=== PATIENT | male | born 1940 | race Caucasian/White ===

== ENCOUNTER 2016-11-08 08:38 | Inpatient (IN) | payer OTHER ==
[2016-11-08] VITALS (28 sets, daily range): BP systolic 102–159; BP diastolic 60–107; PULSE 50–72; RESP 13–28; Ht 167.6 cm; Wt 75.9 kg
[~2016-11-08] VITALS: Ht 167.6 cm; Wt 75.9 kg
[2016-11-08] MEDS ORDERED: CARV12.579 PO (09:15)
[2016-11-08] MEDS ORDERED: MTF1000T PO (09:15)
[2016-11-08] MEDS ORDERED: NIT4 SL (09:15)
[2016-11-08] MEDS ORDERED: LISI10TA2 PO (09:15)
[2016-11-08] MEDS ORDERED: ZOC20 PO (09:15)
[2016-11-08] MEDS ORDERED: ZOLP3.5T2 SL (09:15)
[2016-11-08] MEDS ORDERED: ONDA4SOL2 IV* (09:15)
[2016-11-08] MEDS ORDERED: NITR12SP3 TL (09:15)
[2016-11-08] MEDS ORDERED: ASPI81TA3 PO (09:15)
[2016-11-08] MEDS ORDERED: ZOLP12.52 PO (09:15)
[2016-11-08] MEDS ORDERED: PANT40TA4 PO (09:15)
[2016-11-08] MEDS ORDERED: METF1000 PO (09:15)
[2016-11-08] MEDS ORDERED: METF-731 PO (09:15)
[2016-11-08] MEDS ORDERED: ONDA2VIA31 IV (09:15)
[2016-11-08] MEDS ORDERED: HEPARIN 1000 UNITS/ML 10 ML INJ ONE (11:23)
[2016-11-08] MEDS ORDERED: FENTAnyl 50 MCG/ML VIAL ONE (11:23)
[2016-11-08] MEDS ORDERED: NITROGLYCERIN (IC) 100 MCG/ML INJ ONE (11:23)
[2016-11-08] MEDS ORDERED: MIDAZOLAM 1 MG/ML 2 ML INJ ONE (11:23)
[2016-11-08] MEDS ORDERED: VERAPAMIL 5 MG INJ ONE (11:23)
[2016-11-08] MEDS ORDERED: LIDOCAINE 1% (MDV) 20 ML INJ ONE (11:23)
--- NOTE | 2016-11-08 12:06 | OPR ---
Date/Time of Note Date/Time of Note DATE: 11/08/16 TIME: 12:04 Operative Report Free Text/Dictation Procedure Date:11/08/16 Procedures Performed: 1)Selective left and right coronary angiography. 2)Left ventricle angiography Pre-operative Diagnosis: Chest pain with positive stress MPI (inferolateral ischemia). Post-operative Diagnosis: 3 vessel CAD Indications:76 yo M with a h/o PCI who presented with chest pain to [facility]. The pt had a stress test which showed inferior scar as well as inferior and inferolateral ischemia for which he was brought to the [facility]. Description of Procedure: After informed consent, the patient was brought to the cardiac catheterization lab. The procedure site was prepped and draped in usual manner. The patient was premedicated with versed 1mg and fentanyl 50 mcg. 2 mL lidocaine was injected into the right wrist. Next using the posterior wall technique, the 6/ 5 liberian sheath was inserted into the right radial artery. Next using the JL3.5 and JR4, selective angiography of the left and right coronary arteries were obtained. The pigtail was then advanced into the ventricle and hemodynamics obtained. Left ventricle angiography was obtained. Next all equipment was removed and hemostasis was achieved by TR band. Findings: Anatomy/Hemodynamics: Left main: luminal irregularities LAD: mid eccentric 70-80% at bifurcation of large diag 1, mid 70-80% long lesion Diagonal: large vessel with prox eccentric 80% Circumflex:mid 100% with left-left epicardial collaterals to the distal Cx and OMs RCA: dominant vessel with prox to mid long stent with up to 70% focal areas of in-stent restenosis, distal stent with 100% ISR and bridging right-right and left-right collaterals to the PDA and PLV PDA:fills via right-right and left-right collaterals LV angiography:~45% with significant inferior wall hypokinesis LV-Ao no pullback gradient LVEDP: 5 mmHg Assessment: Chest pain with 3 vessel CAD by cath. CAD with h/o prior PCI to RCA Plan: -admit to tele -ASA, lipitor, MTP -Dr. Alfred to evsd for CABG SANDHYA SMITH Nov 08, 2016 12:06 Medications used: Versed Fentanyl Equipment used: 6 liberian guide BMW angioplasty wire 2 x 12 balloon drug eluting stent noncompliant balloon Assessment: Plan: SANDHYA SMITH Nov 08, 2016 12:06
[2016-11-08] MEDS ORDERED: SOD CHLORIDE 0.9% 1,000 ML IV SCH (13:13)
[2016-11-08] MEDS ORDERED: GLUCOSE GEL 15 GRAM TUBE BUCCAL PRN (14:00)
[2016-11-08] MEDS ORDERED: DEXTROSE 50% 50 ML SYRINGE IV PRN ×2 (14:00)
[2016-11-08] MEDS ORDERED: NITROGLYCERIN (SL) 0.4 MG TAB SL PRN (14:00)
[2016-11-08] MEDS ORDERED: ONDANSETRON (2 MG/2.5 ML PO SYG) PO PRN (14:00)
[2016-11-08] MEDS ORDERED: GLUCOSE GEL 15 GRAM TUBE PO PRN ×2 (14:00)
[2016-11-08] MEDS ORDERED: GLUCAGON 1 MG INJ IM PRN (14:00)
--- NOTE | 2016-11-08 15:07 | HP ---
DATE OF ADMISSION: 11/08/2016 CHIEF COMPLAINT: Chest pain, positive stress test. HISTORY OF PRESENT ILLNESS: This is a 76-year-old male with a past medical history of hype rtension, history of diabetes, history of asthma, dyslipidemia, history of coronary artery disease w ith balloon angioplasty in the past, who presented to an outside hospital with chest pain. The merna ent was admitted to an outside hospital on November 04 with symptoms of substernal chest pain. The patient during his hospital course was evaluated by cardiology and was found to have an abnormal str ess test. The patient was subsequently transferred to [facility] to undergo elect colby cardiac catheterization. Elective cardiac catheterization was performed which showed findings o f multivessel disease. The patient had no intervention performed. Recommendation by Cardiology was for a CT surgery evaluation for possible surgical CABG. Upon my evaluation of patient at this time is currently resting comfortably, denies any active chest pain, fevers, chills, nausea, vomiting, shortness of breath. PAST MEDICAL HISTORY: As stated above, history of hypertension, diabetes, asthma, dyslipidemia. PAST SURGICAL HISTORY: Status post angioplasty in the past. ALLERGIES: NO KNOWN DRUG ALLERGIES. FAMILY HISTORY: No family history of ____. SOCIAL HISTORY: History of distant smoking in the past. No alcohol or drug use. MEDICATIONS: Patient medications have been reviewed and reconciled. REVIEW OF SYSTEMS: A 14-point review of systems was conducted. Pertinent positives in HPI, otherwi se negative. PHYSICAL EXAMINATION: VITAL SIGNS: Blood pressure 127/77, respirations 15, pulse 57, temperature 96.7. HEENT: Head is normocephalic. NECK: Supple. HEART: Regular rate. LUNGS: Show diminished breath sounds at the base. ABDOMEN: Soft, nontender to palpation. No rebound or guarding. EXTREMITIES: Negative for clubbing, cyanosis, or edema. DERMATOLOGIC: No rashes. MUSCULOSKELETAL: The patient's right wrist is in a compression dressing. NEUROLOGIC: No focal deficits. LABORATORY DATA: From [facility] showed a sodium of 141, potassium 4.0, chloride 106, bi carbonate 26, BUN 13, creatinine 0.9, glucose 149, white count 8.2, hemoglobin 14.7, hematocrit 44, platelet count of 314. ASSESSMENT AND PLAN: This is a 76-year-old male who presents with: 1. Coronary artery disease with anginal chest pain. The patient is status post cardiac catheteriza tion which showed 3-vessel disease. Plan is for the patient to be evaluated by CT surgeon, Dr. Edil chaparro, for possible coronary artery bypass graft. Will continue medical management with aspirin, Lipi tor, metoprolol. We will follow up with cardiology for further recommendations. 2. Diabetes. Will check hemoglobin A1c. Will start the patient on insulin sliding scale and monit or. 3. Hypertension. Blood pressure controlled. Continue current blood pressure regimen with metoprol ol. 4. Dyslipidemia. Continue statin therapy. 5. History of asthma. The patient is currently stable. We will continue to monitor. Will give ne bulizers p.r.n. 6. Anxiety disorder. Continue to monitor and give Ativan p.r.n. 7. Gastrointestinal and deep vein thrombosis prophylaxis. We will place patient on Protonix and se quential leg squeezers. Please note I spent over 25 minutes of face to face time with the patient, discussing code status an d as directed, the patient is FULL CODE. Dictated By: VIPUL ALBARRAN/ALISA Conf#: [id number] DID#: [id number]
[2016-11-08] MEDS: ASPIRIN 81 MG TAB PO SCH (17:48)
[2016-11-08] MEDS: INSULIN ASPART [NOVOLOG] 3 ML PEN SC SCH ×2 (18:01→20:21)
[2016-11-08] MEDS: ATORVASTATIN 80 MG TAB PO SCH (20:31)
[2016-11-08] MEDS: METOPROLOL 25 MG TAB PO SCH (20:31)
[2016-11-09] VITALS (11 sets, daily range): BP systolic 110–181; BP diastolic 60–92; PULSE 53–64; RESP 16–20
[2016-11-09 06:41] LABS: POTASSIUM 4.4 mmol/L (3.5-5.1)
[2016-11-09 06:43] LABS: CREATININE 0.86 mg/dl (0.61-1.24)
[2016-11-09 06:44] LABS: PHOSPHORUS 3.3 mg/dl (2.5-4.9)
[2016-11-09 06:45] LABS: CALCIUM 8.8 mg/dl (8.4-10.2); MAGNESIUM 2.2 mg/dl (1.7-2.5)
[2016-11-09 07:23] LABS: RED BLOOD COUNT 4.84 10^6/ul (4.70-6.10); WHITE BLOOD COUNT 8.8 10^3/ul (4.8-10.8)
[2016-11-09 07:26] LABS: BASOPHILS % 0.3 % (0.0-2.0); EOSINOPHILS # 0.2 10^3/ul (0.0-0.5); EOSINOPHILS % 2.2 % (0.0-7.0); HEMATOCRIT 42.4 % (42.0-52.0); HEMOGLOBIN 14.3 g/dl (14.0-18.0); LYMPHOCYTES # 2.2 10^3/ul (0.8-2.9); LYMPHOCYTES % 24.7 % (15.0-51.0); MEAN CORPUSCULAR HEMOGLOBIN 29.5 pg (29.0-33.0); MEAN CORPUSCULAR HGB CONC 33.7 g/dl (32.0-37.0); MEAN CORPUSCULAR VOLUME 87.6 fl (82.0-101.0); MEAN PLATELET VOLUME 10.3 fl (7.4-10.4); MONOCYTE # 0.8 10^3/ul (0.3-0.9); MONOCYTES % 8.7 % (0.0-11.0); NEUTROPHIL # 5.6 10^3/ul (1.6-7.5); NEUTROPHILS % 63.5 % (39.0-77.0); PLATELET COUNT 334 10^3/UL (140-440); RED CELL DISTRIBUTION WIDTH 13.4 % (11.5-14.5)
[2016-11-09] MEDS: INSULIN ASPART [NOVOLOG] 3 ML PEN SC SCH ×4 (07:49→20:05)
[2016-11-09] MEDS: PANTOPRAZOLE (EC) 40 MG TAB PO SCH (07:53)
[2016-11-09] MEDS: METOPROLOL 25 MG TAB PO SCH ×2 (08:19→20:10)
[2016-11-09] MEDS: ASPIRIN 81 MG TAB PO SCH (08:19)
--- NOTE | 2016-11-09 08:48 | PN ---
DATE: 11/09/2016 SUBJECTIVE: The patient is stable, no acute events overnight. No fevers, chills, nausea, vomiting. The patient's chest pain is improved. OBJECTIVE: VITAL SIGNS: Blood pressure 110/71, respirations 20, pulse 61, temperature 97.9. HEENT: Head is normocephalic. NECK: Supple. HEART: Regular rate. LUNGS: Show diminished breath sounds at the base. ABDOMEN: Soft, nontender to palpation. No rebound or guarding. EXTREMITIES: Negative for clubbing, cyanosis, no edema. DERMATOLOGIC: No rashes. MUSCULOSKELETAL: No joint effusions. NEUROLOGIC: No focal deficits. MEDICATIONS: The patient's medications have been reviewed. LABORATORY DATA: Shows CBC, BMP within normal limits. ASSESSMENT AND PLAN: 1. Coronary artery disease with anginal chest pain. The patient is status post cardiac catheteriza tion which showed 3-vessel disease. The patient is pending evaluation by CT surgeon, Dr. Alfred, for possible CABG. Will continue current medical management with aspirin, Lipitor, metoprolol. Follow up with cardiology for further recommendations. 2. Diabetes. Continue current insulin regimen, insulin sliding scale. Will monitor. 3. Hypertension. Blood pressure controlled. Continue current blood pressure regimen. 4. Bradycardia. Continue to monitor closely on metoprolol. 5. Dyslipidemia. Continue statin therapy. 6. History of asthma, currently stable. Continue to monitor. 7. Anxiety disorder. Continue Ativan p.r.n. 8. Gastrointestinal and deep venous thrombosis prophylaxis. Continue proton pump inhibitor and seq uential leg squeezers. Dictated By: VIPUL ALBARRAN/ALISA Conf#: [id number] DID#: [id number]
--- NOTE | 2016-11-09 11:26 | CONS ---
Date/Time of Note Date/Time of Note DATE: 11/09/16 TIME: 11:23 Assessment/Plan Assessment/Plan Chief Complaint/Hosp Course CAD: pt presented with chest pain and had an abnormal nuc MPI. Cath with 3 vessel CAD. Awaiting surgical evaluation for CABG. HTN -ASA, lipitor -MTP -await cardiac surgery eval with Dr. Alfred today Problems: Consultation Date/Type/Reason Admit Date/Time Nov 08, 2016 at 13:14 Type of Consultation: Cardiology 24 HR Interval Summary Free Text/Dictation No o/n events. No chest pain. Exam/Review of Systems Vital Signs Vitals Vital Signs Date Time Temp Pulse Resp B/P Pulse Ox O2 Delivery O2 Flow Rate FiO2 11/09/16 08:04 64 11/09/16 04:34 20 110/71 96 11/09/16 00:00 97.9 11/08/16 15:40 Room Air 11/08/16 14:05 2.0 Intake and Output 11/08/16 11/08/16 11/09/16 15:00 23:00 07:00 Intake Total 50 ml 400 ml Balance 50 ml 400 ml Exam Constitutional: alert, oriented Psych: no complaints Head: normocephalic Neck: No jvd Respiratory: clear to auscultation, No crackles/rales Cardiovascular: regular rate and rhythm, No edema, No systolic murmur Gastrointestinal: soft Neurological: nl mental status, nl speech Results Result Diagram: 11/09/16 0553 11/09/16 0553 Results 24 hrs Laboratory Tests Test 11/08/16 13:31 11/08/16 17:09 11/08/16 20:21 11/09/16 05:53 Bedside Glucose 98 203 131 Anion Gap 13 Basophils # 0.0 Basophils % 0.3 Blood Urea Nitrogen 17 Calcium Level 8.8 Carbon Dioxide Level 27 Chloride Level 106 Creatinine 0.86 Eosinophils # 0.2 Eosinophils % 2.2 Glucose Level 94 Hematocrit 42.4 Hemoglobin 14.3 Lymphocytes # 2.2 Lymphocytes % 24.7 Magnesium Level 2.2 Mean Corpuscular Hemoglobin 29.5 Mean Corpuscular Hemoglobin Concent 33.7 Mean Corpuscular Volume 87.6 Mean Platelet Volume 10.3 Monocytes # 0.8 Monocytes % 8.7 Neutrophils # 5.6 Neutrophils % 63.5 Nucleated Red Blood Cells # 0.0 Nucleated Red Blood Cells % 0.0 Phosphorus Level 3.3 Platelet Count 334 Potassium Level 4.4 Red Blood Count 4.84 Red Cell Distribution Width 13.4 Sodium Level 142 White Blood Count 8.8 Test 11/09/16 07:48 Bedside Glucose 93 Medications Medications Current Medications Miscellaneous Information (* Miscellaneous Pharmacy Order) HOLD all METFORMIN ... ONCE XX ; Start 11/08/16 at 13:30; Stop 11/10/16 at 13:29 Morphine Sulfate (morphine) 2 mg Q2H PRN IV FOR NON CARDIAC PAIN (4-10); Start 11/08/16 at 13:30 Aspirin (Aspirin) 81 mg DAILY PO Last administered on 11/09/16 08:19; Admin Dose 81 MG; Start 11/08/16 at 13:30 Atorvastatin Calcium (Lipitor) 80 mg HS PO Last administered on 11/08/16 20:31 ; Admin Dose 80 MG; Start 11/08/16 at 21:00 Metoprolol Tartrate (Lopressor) 25 mg BID PO Last administered on 11/09/16 08: 19; Admin Dose 25 MG; Start 11/08/16 at 21:00 Nitroglycerin (Nitroglycerin (Sl Tab) 0.4 Mg) 1 tab [id number] PRN SL CHEST PAIN ; Start 11/08/16 at 14:00 Ondansetron HCl (Zofran (Ped)) 4 mg Q6 PRN PO nausea; Start 11/08/16 at 14:00 Miscellaneous Information 1 ea NOTE XX ; Start 11/08/16 at 14:00 Glucose (Glutose) 15 gm Q15M PRN PO DECREASED GLUCOSE; Start 11/08/16 at 14:00 Glucose (Glutose) 22.5 gm Q15M PRN PO DECREASED GLUCOSE; Start 11/08/16 at 14: 00 Dextrose (D50w Syringe) 25 ml Q15M PRN IV DECREASED GLUCOSE; Start 11/08/16 at 14:00 Dextrose (D50w Syringe) 50 ml Q15M PRN IV DECREASED GLUCOSE; Start 11/08/16 at 14:00 Glucagon (Glucagen) 1 mg Q15M PRN IM DECREASED GLUCOSE; Start 11/08/16 at 14:00 Glucose (Glutose) 15 gm Q15M PRN BUCCAL DECREASED GLUCOSE; Start 2/22/17 at 14 :00 SANDHYA SMITH Nov 09, 2016 11:25
--- NOTE | 2016-11-09 18:19 | PN ---
Date/Time of Note Date/Time of Note DATE: 11/09/16 TIME: 18:18 Assessment/Plan Lines/Catheters IV Catheter Type (from Nrs): Saline Lock Pringle in Place (from Nrsg): No Assessment/Plan Assessment/Plan pt seen and full consult dictated. will plan for CABG Sunday, carotids ordered Exam/Review of Systems Vital Signs Vitals Vital Signs Date Time Temp Pulse Resp B/P Pulse Ox O2 Delivery O2 Flow Rate FiO2 11/09/16 16:40 97.6 71 20 134/60 95 11/09/16 11:40 Room Air 11/08/16 14:05 2.0 Intake and Output 11/08/16 11/08/16 11/09/16 15:00 23:00 07:00 Intake Total 50 ml 400 ml Balance 50 ml 400 ml Results Result Diagram: 11/09/16 0553 11/09/16 0553 KENJI FLORES MD Nov 09, 2016 18:19
[2016-11-09] MEDS: ATORVASTATIN 80 MG TAB PO SCH (20:05)
--- NOTE | 2016-11-09 21:11 | RADRPT ---
PROCEDURE: Carotid ultrasound CLINICAL INDICATION: Preoperative examination TECHNIQUE: Little scale, color doppler, spectral doppler ultrasound of the bilateral carotid and rishabh tebral arteries. This study indirectly references the measurement of the distal ICA diameter as the denominator for s tenosis measurement. Validated velocity measurements with angiographic measurements, velocity criter ia are extrapolated from diameter data as defined by: *Cartoid artery stenosis: little-scale and Doppl er US diagnosis. Society of Radiologists in Ultrasound Consensus Conference. Radiology 2003; 229: 34 0-346. SRU Consensus Conference Criteria for the Diagnosis of Carotid Artery Stenosis* Degree of Stenosis, % ICA PSV, cm/sec Plaque Estimate, % ICA/CCA PSV Ratio Normal <125 None <2.0 <50 <125 <50 <2.0 50 69 125-230 >50 2.0-4.0 >70 but less than near occlusion >230 >50 <4.0 Near occlusion High, low, or undetectable Visible Variable Total occlusion Undetectable Visible, no detectable lumen Not applicable COMPARISON: No prior studies are available for comparison. FINDINGS: Location Right CCA59 cm/sec Prox ICA 44 cm/sec Mid ICA98 cm/sec Dist ICA98 cm/sec ECA63 cm/sec ICA/CCA1.7 Left CCA61 cm/sec Prox ICA 65 cm/sec Mid ICA73 cm/sec Dist ICA80 cm/sec ECA83 cm/sec ICA/CCA1.3 Plaque burden: A minimal amount of plaque is present within the visualized portions of both internal carotid arteries however there is no evidence of flow acceleration to suggest a hemodynamically sig nificant stenosis. Antegrade flow is seen within the vertebral arteries bilaterally. IMPRESSION: A minimal amount of plaque is present within the visualized portions of both internal carotid arteri es however there is no evidence of flow acceleration to suggest a hemodynamically significant stenos is. RPTAT: AADD .Elvin Richardson MD, Date Time Electronically viewed and signed by .Elvin Richardson MD, on 11/09/2016 21:11 .B/
--- NOTE | 2016-11-09 21:45 | CONS ---
DATE OF ADMISSION: 11/08/2016 DATE OF CONSULTATION: 11/08/2016 REQUESTING PHYSICIAN: Dr. Adriano Hays CONSULTING PHYSICIAN: Rosalie Alfred MD REASON FOR CONSULTATION: Evaluate for CABG. HISTORY OF PRESENT ILLNESS: The patient is a 76-year-old male with a history of hypertensi on, diabetes, previous coronary artery disease and stenting who was admitted with chest pain to [facility]. He was transferred to [facility] for evaluation and to undergo cardiac ca theterization. Cardiac catheterization shows severe 3-vessel coronary artery disease. We are asked to see him regarding CABG. PAST MEDICAL HISTORY: As above. He also has asthma and dyslipidemia. PAST SURGICAL HISTORY: He has had angioplasty in the past. He has had right shoulder and right kne e surgery. ALLERGIES: NO KNOWN DRUG ALLERGIES. FAMILY HISTORY: No history of early coronary disease. SOCIAL HISTORY: Distant smoker in the past. No alcohol or drugs. He lives alone. MEDICATIONS: He is currently on: 1. Atorvastatin. 2. Protonix. 3. Metoprolol. 4. Aspirin. REVIEW OF SYSTEMS: HEENT: Denies any visual, auditory problems. RESPIRATORY: Denies shortness of breath. CARDIAC: Complains of chest pain on exertion. GASTROINTESTINAL: Denies nausea, vomiting, diarrhea. EXTREMITIES: Denies claudication, edema. NEUROLOGIC: Denies TIA, headaches. SKIN: Denies any lesions or rashes. PHYSICAL EXAMINATION: VITAL SIGNS: Blood pressure of 120/70, respiratory rate 14, pulse of 60. HEENT: Pupils equal, round, react to light. NECK: Supple. No adenopathy, no bruits. LUNGS: Clear to auscultation. No wheezing. CARDIOVASCULAR: Regular rate, rhythm without murmurs. ABDOMEN: Soft, nontender. No organomegaly. EXTREMITIES: 2+ pulses. No edema. NEUROLOGIC: Cranial nerves II-XII intact. Motor and sensory intact. ASSESSMENT AND PLAN: This is a 76-year-old gentleman with severe 3-vessel coronary artery disease w ho will undergo coronary artery bypass graft on Sunday. I will order a carotid duplex tomorrow, a nd I explained the benefits, risks and alternatives to him. The risks ____ but not limited to bleed ing, infection, stroke, myocardial infarction, ____ respiratory failure and . He understands a nd consents. Dictated By: ROSALIE ALFRED MD AA/NTS Conf#: [id number] DID#: [id number] CC: SANDHYA SMITH MD;*EndCC*
[2016-11-10] VITALS (11 sets, daily range): BP systolic 103–148; BP diastolic 59–78; PULSE 54–62; RESP 16–20
--- NOTE | 2016-11-10 06:01 | PN ---
Date/Time of Note Date/Time of Note DATE: 11/10/16 TIME: 06:00 Assessment/Plan Lines/Catheters IV Catheter Type (from Nrs): Saline Lock Pringle in Place (from Nrs): Yes Assessment/Plan Assessment/Plan CABG in AM, check carotids Exam/Review of Systems Vital Signs Vitals Vital Signs Date Time Temp Pulse Resp B/P Pulse Ox O2 Delivery O2 Flow Rate FiO2 11/10/16 04:15 54 11/10/16 00:00 97.8 16 148/65 98 Room Air 11/08/16 14:05 2.0 Intake and Output 11/09/16 11/09/16 11/10/16 15:00 23:00 07:00 Intake Total 360 ml Balance 360 ml Results Result Diagram: 11/09/16 0553 11/09/16 0553 KENJI FLORES MD Nov 10, 2016 06:01
[2016-11-10] MEDS: INSULIN ASPART [NOVOLOG] 3 ML PEN SC SCH ×4 (07:30→20:55)
[2016-11-10] MEDS: PANTOPRAZOLE (EC) 40 MG TAB PO SCH (07:48)
[2016-11-10] MEDS: ASPIRIN 81 MG TAB PO SCH (08:19)
[2016-11-10] MEDS: METOPROLOL 25 MG TAB PO SCH ×2 (08:20→20:53)
--- NOTE | 2016-11-10 09:21 | PN ---
DATE: 11/08/2016 SUBJECTIVE: The patient is stable. He was seen by Dr. Alfred. Plan for CABG tomorrow morning. No acute events noted. No hemoptysis, hematemesis or hematochezia. OBJECTIVE: VITAL SIGNS: Blood pressure 133/74, respirations 16, pulse 69, temperature 97.6. HEENT: Head is normocephalic. NECK: Supple. HEART: Regular rate. LUNGS: Show diminished breath sounds at the base. ABDOMEN: Soft, nontender to palpation without rebound or guarding. EXTREMITIES: Negative for clubbing, cyanosis. No edema. DERMATOLOGIC: No rashes. MUSCULOSKELETAL: No joint effusions. NEUROLOGIC: No change in exam. MEDICATIONS: The patient's medications have been reviewed. LABORATORY DATA: Have been reviewed. No new labs. ASSESSMENT AND PLAN: 1. Coronary artery disease. The patient is status post cardiac catheterization, which showed 3-ves alex disease. The patient is pending coronary artery bypass graft in the a.m. with Dr. Alfred. Corky nuariel current medical management with aspirin, Lipitor, and metoprolol. 2. Diabetes. Continue current insulin regimen. 3. Hypertension, controlled. Continue current blood pressure regimen. 4. Bradycardia, likely due to metoprolol, continue to monitor. 5. Dyslipidemia, continue statin therapy. 6. History of asthma, currently stable. 7. Anxiety disorder. Continue Ativan. 8. Gastrointestinal and deep venous thrombosis prophylaxis. Continue proton pump inhibitor and seq uential leg squeezers. Dictated By: VIPUL ALBARRAN/ALISA Conf#: [id number] DID#: [id number]
--- NOTE | 2016-11-10 10:53 | CONS ---
Date/Time of Note Date/Time of Note DATE: 11/10/16 TIME: 10:52 Assessment/Plan Assessment/Plan Chief Complaint/Hosp Course CAD: pt presented with chest pain and had an abnormal nuc MPI. Cath with 3 vessel CAD. EF 45%. CABG scheduled for tomorrow am. HTN -ASA, lipitor -MTP -CABG tomorrow am per Dr. Alfred. Problems: Consultation Date/Type/Reason Admit Date/Time Nov 08, 2016 at 13:14 Type of Consultation: Cardiology 24 HR Interval Summary Free Text/Dictation No o/n events. Surgery scheduled for tomorrow am. Exam/Review of Systems Vital Signs Vitals Vital Signs Date Time Temp Pulse Resp B/P Pulse Ox O2 Delivery O2 Flow Rate FiO2 11/10/16 08:00 57 11/10/16 07:24 97.6 16 133/74 98 11/10/16 00:00 Room Air 11/08/16 14:05 2.0 Intake and Output 11/09/16 11/09/16 11/10/16 15:00 23:00 07:00 Intake Total 360 ml 400 ml Balance 360 ml 400 ml Exam Constitutional: alert, oriented Psych: no complaints Head: atraumatic, normocephalic Neck: No jvd Respiratory: clear to auscultation, No crackles/rales Cardiovascular: regular rate and rhythm, No edema, No systolic murmur Gastrointestinal: non-tender, soft Extremities: normal pulses Neurological: nl mental status, nl speech Results Result Diagram: 11/09/16 0553 11/09/16 0553 Results 24 hrs Laboratory Tests Test 11/09/16 11:30 11/09/16 17:27 11/09/16 20:03 11/10/16 07:26 Bedside Glucose 185 128 140 97 Medications Medications Current Medications Miscellaneous Information (* Miscellaneous Pharmacy Order) HOLD all METFORMIN ... ONCE XX Last administered on 11/09/16 13:46; Admin Dose 1 EA; Start at 13:30; Stop 11/10/16 at 13:29 Morphine Sulfate (morphine) 2 mg Q2H PRN IV FOR NON CARDIAC PAIN (4-10); Start 11/08/16 at 13:30 Aspirin (Aspirin) 81 mg DAILY PO Last administered on 11/10/16 08:19; Admin Dose 81 MG; Start 11/08/16 at 13:30 Atorvastatin Calcium (Lipitor) 80 mg HS PO Last administered on 11/09/16 20:05 ; Admin Dose 80 MG; Start 11/08/16 at 21:00 Metoprolol Tartrate (Lopressor) 25 mg BID PO Last administered on 11/10/16 08: 20; Admin Dose 25 MG; Start 11/08/16 at 21:00 Nitroglycerin (Nitroglycerin (Sl Tab) 0.4 Mg) 1 tab [id number] PRN SL CHEST PAIN ; Start 11/08/16 at 14:00 Ondansetron HCl (Zofran (Ped)) 4 mg Q6 PRN PO nausea; Start 11/08/16 at 14:00 Miscellaneous Information 1 ea NOTE XX ; Start 11/08/16 at 14:00 Glucose (Glutose) 15 gm Q15M PRN PO DECREASED GLUCOSE; Start 11/08/16 at 14:00 Glucose (Glutose) 22.5 gm Q15M PRN PO DECREASED GLUCOSE; Start 11/08/16 at 14: 00 Dextrose (D50w Syringe) 25 ml Q15M PRN IV DECREASED GLUCOSE; Start 11/08/16 at 14:00 Dextrose (D50w Syringe) 50 ml Q15M PRN IV DECREASED GLUCOSE; Start 11/08/16 at 14:00 Glucagon (Glucagen) 1 mg Q15M PRN IM DECREASED GLUCOSE; Start 11/08/16 at 14:00 Glucose 15 gm 15 gm Q15M PRN BUCCAL DECREASED GLUCOSE; Start 11/08/16 at 14:00 Cefazolin Sodium/ Dextrose (Ancef 2 Gm/50 ml (Pmx)) 50 ml @ 100 mls/hr PRE-OP ONCE IVPB ; Start 11/11/16 at 06:00; Stop 11/11/16 at 06:29 SANDHYA SMITH Nov 10, 2016 10:53
[2016-11-10] MEDS: ATORVASTATIN 80 MG TAB PO SCH (20:53)
[2016-11-11] VITALS (54 sets, daily range): BP systolic 103–166; BP diastolic 53–90; PULSE 53–105; RESP 10–20; TEMP 99.2–99.7
[2016-11-11] MEDS ORDERED: CEFAZOLIN 2 GM/50 ML (PMX) 50 ML IVPB ONE (06:00)
[2016-11-11] MEDS ORDERED: GELATIN SIZE 100 SPONGE ONE (06:19)
[2016-11-11] MEDS ORDERED: PAPAVERINE 60 MG INJ ONE (06:19)
[2016-11-11] MEDS ORDERED: HEPARIN 1000 UNITS/ML 10 ML INJ ONE ×5 (06:19→09:43)
[2016-11-11] MEDS ORDERED: SODIUM CL BACTERIOSTATIC 30 ML INJ ONE (06:19)
[2016-11-11] MEDS ORDERED: THROMBIN 5000 UNIT VIAL ONE (06:20)
[2016-11-11] MEDS ORDERED: VANCOMYCIN 1 GM INJ ONE (06:21)
[2016-11-11] MEDS ORDERED: DOPamine-D5W 1.6 MG/ML 250 ML ONE (07:00)
[2016-11-11] MEDS ORDERED: NITROGLYCERIN 50 MG/D5W 250 ML BTL ONE (07:00)
--- NOTE | 2016-11-11 07:00 | HPN ---
Date/Time of Note Date/Time of Note DATE: 11/11/16 TIME: 07:00 Interval H&P Admission Note Pt. seen H&P reviewed: No system changes KENJI FLORES MD Nov 11, 2016 07:00
[2016-11-11] MEDS ORDERED: ROCURONIUM 50 MG INJ ONE ×2 (07:15→11:55)
[2016-11-11] MEDS ORDERED: SUCCINYLCHOLINE CHLORIDE 100 MG/5 ML SYG IV ONE (07:15)
[2016-11-11] MEDS ORDERED: PHENYLephrine 10 MG INJ ONE ×2 (07:15→07:25)
[2016-11-11] MEDS ORDERED: PROPOFOL 20 ML ONE (07:15)
[2016-11-11] MEDS ORDERED: EPHEDrine SULFATE 50 MG/5 ML SYG ONE (07:15)
[2016-11-11] MEDS ORDERED: MIDAZOLAM 5 ML ONE ×2 (07:16→09:26)
[2016-11-11] MEDS ORDERED: CEFAZOLIN 1 GM INJ ONE ×3 (07:17→10:58)
[2016-11-11] MEDS ORDERED: CA CHLORIDE 10% 10 ML SYRINGE ONE (07:18)
[2016-11-11] MEDS ORDERED: ALBUMIN HUMAN 25% 300 ML ONE (07:19)
[2016-11-11] MEDS ORDERED: AMINOCAPROIC ACID 5 GM INJ ONE ×4 (07:19→10:58)
[2016-11-11] MEDS ORDERED: POTASSIUM CHLORIDE 40 MEQ INJ ONE (07:21)
[2016-11-11] MEDS ORDERED: VASOPRESSIN 20 UNITS INJ ONE (07:22)
[2016-11-11] MEDS ORDERED: LIDOCAINE 100 MG SYRINGE ONE (07:22)
[2016-11-11] MEDS ORDERED: MAGNESIUM SULFATE (MG) 50% 10 ML INJ ONE (07:23)
[2016-11-11] MEDS ORDERED: MANNITOL 25% 150 ML ONE (07:24)
[2016-11-11] MEDS ORDERED: PHENYLephrine (100 MCG/ML) 5ML SYG ONE ×3 (07:25→10:57)
[2016-11-11] MEDS ORDERED: INSULIN REGULAR, HUMAN 100 UNIT in SOD CHLORIDE 0.9% 99 ML IVPB ONE ×2 (07:30)
[2016-11-11] MEDS ORDERED: HEPARIN (10000 UNITS/ML) 10,000 UNIT, MILRINONE LACTATE 10 MG in SOD CHLORIDE 0.9% 1,00... SC ONE (07:30)
[2016-11-11] MEDS ORDERED: MILRINONE LACTATE 2 MG in SOD CHLORIDE 0.9% 50 ML IV ONE (07:30)
[2016-11-11] MEDS ORDERED: PHENYLephrine 20MG IN 250 ML 250 ML IV ONE (07:30)
[2016-11-11] MEDS ORDERED: NORepinephrine 8MG/250 ML (PMX 250 ML IV ONE (07:30)
[2016-11-11] MEDS ORDERED: ASPIRIN 600 MG SUPP PR ONE (07:30)
[2016-11-11] MEDS ORDERED: HEPARIN 10,000 UNITS/ML 1 ML INJ ONE (09:00)
[2016-11-11] MEDS: METOPROLOL 25 MG TAB PO SCH ×2 (09:00→20:47)
--- NOTE | 2016-11-11 09:14 | PN ---
DATE: 11/11/2016 SUBJECTIVE: The patient is stable, no acute events overnight. No fevers, chills, nausea, vomiting. The patient is n.p.o. pending CABG this morning. No other events noted. OBJECTIVE: VITAL SIGNS: Blood pressure 140/67, respirations 20, pulse 62, temperature 98.0. HEENT: Head is normocephalic. NECK: Supple. HEART: Regular rate. LUNGS: Show diminished breath sounds at base. ABDOMEN: Soft, nontender to palpation, no rebound, guarding. EXTREMITIES: Negative for clubbing, cyanosis. No edema. DERMATOLOGIC: No rashes. MUSCULOSKELETAL: No joint effusions. NEUROLOGIC: No focal deficits. MEDICATIONS: Have been reviewed. LABORATORY DATA: Has been reviewed. No new labs. ASSESSMENT AND PLAN: 1. Coronary artery disease. The patient is pending coronary artery bypass graft by Dr. Alfred. Marty cortes current medical management. 2. Diabetes. Continue current insulin regimen. 3. Hypertension, controlled. 4. History of bradycardia, likely due to metoprolol. Continue to monitor. 5. Dyslipidemia. Continue statin therapy. 6. History of asthma. Currently stable. 7. Anxiety disorder. Continue Ativan. 8. Gastrointestinal and deep venous thrombosis prophylaxis. Continue proton pump inhibitor and seq uential leg squeezers. Dictated By: VIPUL ALBARRAN/ALISA Conf#: [id number] DID#: [id number]
[2016-11-11] MEDS ORDERED: PROTAMINE 250 MG INJ ONE (10:59)
--- NOTE | 2016-11-11 11:52 | RADRPT ---
PROCEDURE: XR Chest. CLINICAL INDICATION: Respiratory distress. Postop. TECHNIQUE: AP view of the chest was performed. COMPARISON: None FINDINGS: There is an ET tube 7 cm above the laury. There is a right IJ Cordis with a Kountze-Gregor catheter wit h the tip in the main pulmonary artery. Postsurgical changes are present with CABG changes. No radiopaque foreign body. Mediastinal drains and anal left subpulmonic chest tube are present. No pneumothorax. The heart si ze is normal. No findings of fluid overload, pulmonary edema or pleural effusion. IMPRESSION: Support lines and tubes in place. Postsurgical changes. No radiopaque foreign body. No pneumothor ax or findings of fluid overload. RPTAT: QQ. .Viola Frias MD, MD Date Time Electronically viewed and signed by .Viola Frias MD, MD on 11/11/2016 11:52 .F/
[2016-11-11] MEDS ORDERED: LIDOCAINE 2% (SDV) 5 ML INJ ONE (11:55)
[2016-11-11] MEDS ORDERED: ETOMIDATE 20 MG INJ ONE (11:55)
[2016-11-11] MEDS ORDERED: DOPamine-D5W 1.6 MG/ML 250 ML IV SCH (12:00)
[2016-11-11] MEDS ORDERED: ONDANSETRON 4 MG INJ IV PRN (12:00)
[2016-11-11] MEDS ORDERED: ACETAMINOPHEN 325 MG TAB PO PRN (12:00)
[2016-11-11] MEDS ORDERED: DEXTROSE 50% 50 ML SYRINGE IV PRN ×2 (12:00)
[2016-11-11] MEDS ORDERED: MAGNESIUM SULFATE 1 GM/D5W 100 ML IVPB PRN (12:00)
[2016-11-11] MEDS ORDERED: OXYCODONE/ACETAMINOPHEN (5/325) TAB PO PRN (12:00)
[2016-11-11] MEDS ORDERED: NITROGLYCERIN 50 MG/D5W (PMX) 250 ML IV SCH (12:00)
[2016-11-11] MEDS ORDERED: HYDROmorphONE 1 MG/ML SYG IV PRN (12:00)
[2016-11-11 12:30] LABS: ADD SCAN DIFF NO
[2016-11-11 12:34] LABS: BASOPHIL # 0.1 10^3/ul (0.0-0.1); BASOPHILS % 0.3 % (0.0-2.0); EOSINOPHILS # 0.1 10^3/ul (0.0-0.5); EOSINOPHILS % 0.5 % (0.0-7.0); HEMATOCRIT 31.1 % (42.0-52.0); HEMOGLOBIN 10.9 g/dl (14.0-18.0); LYMPHOCYTES # 2.9 10^3/ul (0.8-2.9); LYMPHOCYTES % 15.4 % (15.0-51.0); MEAN CORPUSCULAR HEMOGLOBIN 30.6 pg (29.0-33.0); MEAN CORPUSCULAR VOLUME 87.4 fl (82.0-101.0); MEAN PLATELET VOLUME 10.2 fl (7.4-10.4); MONOCYTE # 0.9 10^3/ul (0.3-0.9); MONOCYTES % 4.9 % (0.0-11.0); NEUTROPHIL # 14.5 10^3/ul (1.6-7.5); NEUTROPHILS % 78.2 % (39.0-77.0); PLATELET COUNT 216 10^3/UL (140-415); RED BLOOD COUNT 3.56 10^6/ul (4.70-6.10); RED CELL DISTRIBUTION WIDTH 13.3 % (11.5-14.5); WHITE BLOOD COUNT 18.5 10^3/ul (4.8-10.8)
--- NOTE | 2016-11-11 12:40 | CONS ---
Date/Time of Note Date/Time of Note DATE: 11/11/16 TIME: 12:26 Consult Date/Type/Reason Admit Date/Time Nov 08, 2016 at 13:14 Initial Consult Date Type of Consultation: Cardiology Subjective Patient returns to ICU s/p CABG X 4. Intubated, on NTG drip. Objective Vital Signs Date Time Temp Pulse Resp B/P Pulse Ox O2 Delivery O2 Flow Rate FiO2 11/11/16 12:10 93 11/11/16 05:16 98.0 20 148/67 98 Room Air 11/08/16 14:05 2.0 Intake and Output 11/10/16 11/10/16 11/11/16 15:00 23:00 07:00 Intake Total 900 ml Balance 900 ml Hemodynamics: CVP 7mmHg, PA mean 14 mmHg Tele: sinus Gen: NAD, intubated HEENT: NCAT, ETT in place Neck: No JVD, R IJ [place]-Gregor Heart: RRR, no m/r/g/, S1S2, no S3S4, no c/c/e, sternotomy incision covered with gauze Lungs: Equal BS, no crackles/wheezes Abdomen: positive BS, s/nt/nd, drains, epicardial leads in place Ext: no c/c/e, distal toes cool to the touch Results/Medications Result Diagram: 11/09/16 0553 11/09/16 0553 Results 24 hrs Laboratory Tests Test 11/10/16 16:45 11/10/16 20:55 11/11/16 05:54 Bedside Glucose 126 116 118 Medications Current Medications Morphine Sulfate (morphine) 2 mg Q2H PRN IV FOR NON CARDIAC PAIN (4-10); Start 11/08/16 at 13:30 Atorvastatin Calcium (Lipitor) 80 mg HS PO Last administered on 11/10/16 20:53 ; Admin Dose 80 MG; Start 11/08/16 at 21:00 Metoprolol Tartrate (Lopressor) 25 mg BID PO Last administered on 11/10/16 08: 20; Admin Dose 25 MG; Start 11/08/16 at 21:00 Nitroglycerin (Nitroglycerin (Sl Tab) 0.4 Mg) 1 tab [id number] PRN SL CHEST PAIN ; Start 11/08/16 at 14:00 Ondansetron HCl 4 mg 4 mg Q6 PRN PO nausea; Start 11/08/16 at 14:00 Potassium Chloride 40 meq/ Calcium Chloride 1 gm/Dextrose/ Sodium Chloride 1, 030 ml @ 60 mls/hr [id number] IV ; Start 11/11/16 at 14:00 Cefazolin Sodium (Ancef 1 Gm/50 ml (Pmx)) 50 ml @ 100 mls/hr Q8H IVPB ; Start 11/11/16 at 20:00; Stop 11/12/16 at 12:29 Hydromorphone HCl (Dilaudid) 0.2 mg Q15M PRN IV PAIN LEVEL 1-5; Start 11/11/16 at 12:00 Hydromorphone HCl (Dilaudid) 0.4 mg Q15M PRN IV PAIN LEVEL 6-10; Start at 12:00 Oxycodone/ Acetaminophen (Percocet (5/ 325)) 1 tab Q3H PRN PO PAIN LEVEL 1-5; Start 11/11/16 at 12:00 Oxycodone/ Acetaminophen (Percocet (5/ 325)) 2 tab Q3H PRN PO PAIN LEVEL 6-10; Start 11/11/16 at 12:00 Ondansetron HCl (Zofran Inj) 4 mg Q6H PRN IV NAUSEA AND/OR VOMITING; Start at 12:00 Famotidine (Pepcid Iv) 20 mg BID@08,20 IV ; Start 11/11/16 at 20:00 Aspirin (Aspirin) 325 mg DAILY PO ; Start 11/12/16 at 09:00 Acetaminophen 650 mg 650 mg Q3H PRN PO ELEVATED TEMPERATURE; Start 11/11/16 at 12:00 Magnesium Sulfate/ Dextrose (Magnesium Sulfate 1 Gm/D5W) 100 ml @ 100 mls/hr PRN PRN IVPB PENDING LAB VALUE; Start 11/11/16 at 12:00 Diagnostic Test (Pha) (Accucheck) 1 ea Q1H XX ; Start 11/11/16 at 13:00 Dextrose (D50w Syringe) 25 ml Q15M PRN IV Till BS 80 mg/dL or above x2; Start 11/11/16 at 12:00 Dextrose (D50w Syringe) 50 ml Q15M PRN IV Till BS 80 mg/dL or above x2; Start 11/11/16 at 12:00 Assessment/Plan Additional Assessment/Plan Assessment Multivessel CAD, s/p CABG 11/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 Post-op care per Dr. Alfred 2. ASA 3. Resume Lipitor when able 4. Glycemic control QAMAR CARBALLO MD Nov 11, 2016 12:37
[2016-11-11 12:42] LABS: POTASSIUM 3.8 mmol/L (3.5-5.1)
[2016-11-11 12:44] LABS: INR 1.57; PARTIAL THROMBOPLASTIN TIME 33.1 Sec (25.0-35.0); PROTIME 18.9 Sec (12.2-14.2); PT RATIO 1.5
[2016-11-11 12:45] LABS: CREATININE 0.79 mg/dl (0.61-1.24); MAGNESIUM 3.1 mg/dl (1.7-2.5)
[2016-11-11] MEDS ORDERED: INSULIN REGULAR, HUMAN 100 UNIT in SOD CHLORIDE 0.9% 99 ML IV SCH ×2 (13:00)
[2016-11-11] MEDS: POTASSIUM CHLORIDE 50 ML IVPB PRN ×3 (13:17→15:57)
[2016-11-11] MEDS: HYDROmorphONE 1 MG/ML SYG IV PRN ×2 (13:23→17:15)
[2016-11-11 13:49] LABS: AADO2 Arterial 258.6 mmHg (7.0-24.0); Arterial Base Excess -1.8 mmol/L (-3.0-3); Arterial COHb 0.2 % (0.0-3.0); Arterial HCO3 23.8 mmol/L (22.0-26.0); Arterial MetHb 0.4 % (0.0-1.5); Arterial Total Hemglobin 13.3 g/dl (12.0-18.0); MODE VENT - AC
[2016-11-11 13:54] LABS: MODE VENT - AC; MetHgb Mixed Venous 0.5 %; Mixed Venous Base Excess -1.8 mmol/L; Mixed Venous COHb 0.3 %; Mixed Venous Fraction OxyHgb 56.3 %; Mixed Venous Oxygen Sat 56.8 mmHG (65.0-75.0); Mixed Venous Total Hemglobin 12.9 g/dl; Sample Type BLMV
[2016-11-11] MEDS: POTASSIUM CHLORIDE 40 MEQ, CALCIUM CHLORIDE 10% 1 GM in DEXTROSE 5%-0.225% NACL 1,000 ML IV SCH (13:55)
[2016-11-11] MEDS: ACCUCHECK XX SCH ×11 (13:55→23:00)
[2016-11-11] MEDS: ALBUMIN HUMAN 5% 250 ML IV SCH ×2 (15:45→16:38)
[2016-11-11 17:18] LABS: AADO2 Arterial 76.2 mmHg (7.0-24.0); Arterial Base Excess -0.9 mmol/L (-3.0-3); Arterial COHb 0.3 % (0.0-3.0); Arterial Fraction of Oxyhgb 97.6 % (93.0-99.0); Arterial HCO3 23.6 mmol/L (22.0-26.0); Arterial MetHb 0.5 % (0.0-1.5); Arterial Total Hemglobin 12.3 g/dl (12.0-18.0); Blood Gas PS 10; MODE VENT - CPAP
[2016-11-11] MEDS ORDERED: FAMOTIDINE 20 MG INJ IV SCH (20:00)
[2016-11-11] MEDS: CEFAZOLIN 1 GM/50 ML (PMX) 50 ML IVPB SCH (20:00)
[2016-11-11] MEDS: ATORVASTATIN 80 MG TAB PO SCH (20:46)
[2016-11-11] MEDS ORDERED: FAMOTIDINE 20 MG TAB PO SCH (21:00)
[2016-11-12] VITALS (60 sets, daily range): BP systolic 109–139; BP diastolic 52–92; PULSE 75–91; RESP 13–27; TEMP 99.9–100.3
[2016-11-12] MEDS: ACCUCHECK XX SCH ×7 (01:00→07:17)
[2016-11-12] MEDS: CEFAZOLIN 1 GM/50 ML (PMX) 50 ML IVPB SCH (03:55)
[2016-11-12 05:19] LABS: Arterial Base Excess -1.5 mmol/L (-3.0-3); Arterial COHb 0.3 % (0.0-3.0); Arterial Fraction of Oxyhgb 97.6 % (93.0-99.0); Arterial HCO3 22.5 mmol/L (22.0-26.0); Arterial MetHb 0.6 % (0.0-1.5); Arterial Total Hemglobin 12.6 g/dl (12.0-18.0); MODE NASAL CANNULA
[2016-11-12 05:43] LABS: ADD SCAN DIFF NO
[2016-11-12 05:50] LABS: POTASSIUM 4.3 mmol/L (3.5-5.1)
[2016-11-12 05:53] LABS: CREATININE 0.72 mg/dl (0.61-1.24); INR 1.46; PROTIME 17.8 Sec (12.2-14.2); PT RATIO 1.4
[2016-11-12 05:54] LABS: CALCIUM 8.9 mg/dl (8.4-10.2); MAGNESIUM 1.9 mg/dl (1.7-2.5); PARTIAL THROMBOPLASTIN TIME 36.8 Sec (25.0-35.0); PHOSPHORUS 3.3 mg/dl (2.5-4.9)
[2016-11-12 06:05] LABS: BASOPHILS % 0.2 % (0.0-2.0); EOSINOPHILS % 0.1 % (0.0-7.0); HEMATOCRIT 30.3 % (42.0-52.0); HEMOGLOBIN 10.4 g/dl (14.0-18.0); LYMPHOCYTES # 1.3 10^3/ul (0.8-2.9); LYMPHOCYTES % 10.1 % (15.0-51.0); MEAN CORPUSCULAR HEMOGLOBIN 30.1 pg (29.0-33.0); MEAN CORPUSCULAR HGB CONC 34.3 g/dl (32.0-37.0); MEAN CORPUSCULAR VOLUME 87.8 fl (82.0-101.0); MEAN PLATELET VOLUME 11.2 fl (7.4-10.4); MONOCYTE # 1.1 10^3/ul (0.3-0.9); MONOCYTES % 8.2 % (0.0-11.0); NEUTROPHIL # 10.7 10^3/ul (1.6-7.5); PLATELET COUNT 217 10^3/UL (140-415); RED BLOOD COUNT 3.45 10^6/ul (4.70-6.10); RED CELL DISTRIBUTION WIDTH 13.8 % (11.5-14.5); WHITE BLOOD COUNT 13.2 10^3/ul (4.8-10.8)
[2016-11-12] MEDS: POTASSIUM CHLORIDE 40 MEQ, CALCIUM CHLORIDE 10% 1 GM in DEXTROSE 5%-0.225% NACL 1,000 ML IV SCH (06:13)
--- NOTE | 2016-11-12 07:35 | PN ---
Date/Time of Note Date/Time of Note DATE: 11/12/16 TIME: 07:34 Assessment/Plan Lines/Catheters IV Catheter Type (from Nrs): Cordis Ramírez in Place (from Nrs): Yes Assessment/Plan Assessment/Plan doing well, HD stable. remove lines and ramírez. beta blockers and lipitor labs ok transfer later today Exam/Review of Systems Vital Signs Vitals Vital Signs Date Time Temp Pulse Resp B/P Pulse Ox O2 Delivery O2 Flow Rate FiO2 11/12/16 07:00 79 22 122/58 100 11/12/16 06:30 100.0 11/12/16 05:29 2.0 11/11/16 20:00 Nasal Cannula 11/11/16 17:50 30 Intake and Output 11/11/16 11/11/16 11/12/16 15:00 23:00 07:00 Intake Total 2195 ml 1182.5 ml 543.5 ml Output Total 2190 ml 665 ml 331 ml Balance 5 ml 517.5 ml 212.5 ml Results Result Diagram: 11/12/16 0520 11/12/16 0500 KENJI FLORES MD Nov 12, 2016 07:35
--- NOTE | 2016-11-12 07:59 | CONS ---
Date/Time of Note Date/Time of Note DATE: 11/12/16 TIME: 07:57 Consult Date/Type/Reason Admit Date/Time Nov 08, 2016 at 13:14 Type of Consultation: Cardiology Subjective Extubated yest evening. Off all vasoactive agents. Feels fine. Complains of dry mouth. No CP or SOB Objective Vital Signs Date Time Temp Pulse Resp B/P Pulse Ox O2 Delivery O2 Flow Rate FiO2 11/12/16 07:00 79 22 122/58 100 11/12/16 06:30 100.0 11/12/16 05:29 2.0 11/11/16 20:00 Nasal Cannula 11/11/16 17:50 30 Intake and Output 11/11/16 11/11/16 11/12/16 15:00 23:00 07:00 Intake Total 2195 ml 1182.5 ml 543.5 ml Output Total 2190 ml 665 ml 331 ml Balance 5 ml 517.5 ml 212.5 ml Hemodynamics: CVP 7mmHg, PA mean 16 mmHg Tele: sinus, PVCs Gen: NAD, alert HEENT: NCAT Neck: No JVD, R IJ [place]-Gregor Heart: RRR, no m/r/g/, S1S2, no S3S4, no c/c/e, sternotomy incision covered with gauze Lungs: Equal BS, no crackles/wheezes Abdomen: positive BS, s/nt/nd, drains, epicardial leads in place Ext: no c/c/e, warm Results/Medications Result Diagram: 11/12/16 0520 11/12/16 0500 Results 24 hrs Laboratory Tests Test 11/11/16 11:45 11/11/16 12:14 11/11/16 12:15 11/11/16 13:31 Arterial Blood HCO3 23.8 Arterial Blood Base Excess -1.8 Arterial Blood Oxygen Saturation 97.6 Patricio Test N/A Arterial Blood Gas Puncture Site A-Line Arterial Blood Carboxyhemoglobin 0.2 Arterial Blood Date Drawn 11/11/2016 1:35:20 PM Arterial Blood Methemoglobin 0.4 Arterial Blood pCO2 (Temp correct) 43.7 Arterial Blood pH (Temp corrected) 7.354 Arterial Blood pO2 (Temp corrected) 121.1 H Blood Gas A-a O2 Differential 258.6 H Blood Gas Actual Respiration Rate 20 Blood Gas Critical Value Read Back Lety LICONA RN Blood Gas Low PEEP Setting 5.0 Blood Gas Modality VENT - AC Blood Gas Notified Time 11/11/2016 1:48:29 PM Blood Gas Notified Whom RDIX Blood Gas Respiration Rate 14.0 Blood Gas Specimen Source Blood arterial Blood Gas Temperature 37.0 Blood Gas Tidal Volume 500.0 FiO2 60.0 Oxyhemoglobin Percent 97.0 Total Hemoglobin 13.3 Bedside Glucose 105 169 Activated Partial Thromboplast Time 33.1 Anion Gap 14 Basophils # 0.1 Basophils % 0.3 Blood Urea Nitrogen 17 Calcium Level 9.0 Carbon Dioxide Level 26 Chloride Level 105 Creatinine 0.79 Eosinophils # 0.1 Eosinophils % 0.5 Glucose Level 99 Hematocrit 31.1 #L Hemoglobin 10.9 #L INR International Normalized Ratio 1.57 Lymphocytes # 2.9 Lymphocytes % 15.4 Magnesium Level 3.1 H Mean Corpuscular Hemoglobin 30.6 Mean Corpuscular Hemoglobin Concent 35.0 Mean Corpuscular Volume 87.4 Mean Platelet Volume 10.2 Monocytes # 0.9 Monocytes % 4.9 Neutrophils # 14.5 H Neutrophils % 78.2 H Nucleated Red Blood Cells # 0.0 Nucleated Red Blood Cells % 0.0 Platelet Count 216 Potassium Level 3.8 Prothrombin Time 18.9 H Prothrombin Time Ratio 1.5 Red Blood Count 3.56 #L Red Cell Distribution Width 13.3 Sodium Level 141 White Blood Count 18.5 #H Test 11/11/16 13:42 11/11/16 14:30 11/11/16 16:08 11/11/16 16:45 Patricio Test N/A N/A Arterial Blood Date Drawn 11/11/2016 1:37:15 PM 11/11/2016 5:05:47 PM Arterial Blood Gas Puncture Site VENOUS LINE A-Line Blood Gas A-a O2 Differential 340.4 76.2 H Blood Gas Actual Respiration Rate 20 16 Blood Gas Critical Value Read Back Lety LICONA RN Blood Gas Low PEEP Setting 5.0 5.0 Blood Gas Modality VENT - AC VENT - CPAP Blood Gas Notified Time 11/11/2016 1:54:10 PM 11/11/2016 5:17:41 PM Blood Gas Notified Whom RDIX DT Blood Gas Respiration Rate 14.0 Blood Gas Specimen Source BLMV Blood arterial Blood Gas Temperature 37.0 37.0 Blood Gas Tidal Volume 500.0 FiO2 60.0 40.0 Mixed Venous Bld Carboxyhemoglobin 0.3 Mixed Venous Blood Base Excess -1.8 Mixed Venous Blood HCO3 24.9 Mixed Venous Blood Methemoglobin 0.5 Mixed Venous Blood O2 Saturation 56.8 L Mixed Venous Blood Oxyhemoglobin 56.3 Mixed Venous Blood PCO2 49.8 Mixed Venous Blood PO2 32.6 Mixed Venous Blood Total Hemoglobin 12.9 Mixed Venous Blood pH 7.316 L Bedside Glucose 159 162 Arterial Blood HCO3 23.6 Arterial Blood Base Excess -0.9 Arterial Blood Oxygen Saturation 98.4 Arterial Blood Carboxyhemoglobin 0.3 Arterial Blood Methemoglobin 0.5 Arterial Blood pCO2 (Temp correct) 38.5 Arterial Blood pH (Temp corrected) 7.405 Arterial Blood pO2 (Temp corrected) 164.7 H Blood Gas Pressure Support 10 Oxyhemoglobin Percent 97.6 Total Hemoglobin 12.3 Test 11/11/16 18:38 11/11/16 19:50 11/11/16 21:21 11/11/16 23:37 Bedside Glucose 122 143 153 141 Test 11/12/16 03:31 11/12/16 05:00 11/12/16 05:20 11/12/16 06:00 Bedside Glucose 136 132 Activated Partial Thromboplast Time 36.8 H Arterial Blood HCO3 22.5 Arterial Blood Base Excess -1.5 Arterial Blood Oxygen Saturation 98.5 Patricio Test N/A Arterial Blood Gas Puncture Site A-Line Anion Gap 14 Arterial Blood Carboxyhemoglobin 0.3 Arterial Blood Date Drawn 11/12/2016 5:13:16 AM Arterial Blood Methemoglobin 0.6 Arterial Blood pCO2 (Temp correct) 35.5 Arterial Blood pH (Temp corrected) 7.419 Arterial Blood pO2 (Temp corrected) 155.2 H Blood Gas A-a O2 Differential 17.0 Blood Gas Modality NASAL CANNULA Blood Gas Notified Time 11/12/2016 5:18:53 AM Blood Gas Notified Whom BR Blood Gas Specimen Source Blood arterial Blood Gas Temperature 37.0 Blood Urea Nitrogen 14 Calcium Level 8.9 Carbon Dioxide Level 25 Chloride Level 104 Creatinine 0.72 FiO2 30.0 Glucose Level 137 INR International Normalized Ratio 1.46 Magnesium Level 1.9 Oxyhemoglobin Percent 97.6 Phosphorus Level 3.3 Potassium Level 4.3 Prothrombin Time 17.8 H Prothrombin Time Ratio 1.4 Sodium Level 139 Total Hemoglobin 12.6 Basophils # 0.0 Basophils % 0.2 Eosinophils # 0.0 Eosinophils % 0.1 Hematocrit 30.3 L Hemoglobin 10.4 L Lymphocytes # 1.3 Lymphocytes % 10.1 L Mean Corpuscular Hemoglobin 30.1 Mean Corpuscular Hemoglobin Concent 34.3 Mean Corpuscular Volume 87.8 Mean Platelet Volume 11.2 H Monocytes # 1.1 H Monocytes % 8.2 Neutrophils # 10.7 H Neutrophils % 81.0 H Nucleated Red Blood Cells # 0.0 Nucleated Red Blood Cells % 0.0 Platelet Count 217 Red Blood Count 3.45 L Red Cell Distribution Width 13.8 White Blood Count 13.2 #H Medications Current Medications Morphine Sulfate (morphine) 2 mg Q2H PRN IV FOR NON CARDIAC PAIN (4-10); Start 11/08/16 at 13:30 Atorvastatin Calcium (Lipitor) 80 mg HS PO Last administered on 11/11/16 20:46 ; Admin Dose 80 MG; Start 11/08/16 at 21:00 Metoprolol Tartrate (Lopressor) 25 mg BID PO Last administered on 11/11/16 20: 47; Admin Dose 25 MG; Start 11/08/16 at 21:00 Nitroglycerin (Nitroglycerin (Sl Tab) 0.4 Mg) 1 tab [id number] PRN SL CHEST PAIN ; Start 11/08/16 at 14:00 Ondansetron HCl (Zofran (Ped)) 4 mg Q6 PRN PO nausea; Start 11/08/16 at 14:00 Hydromorphone HCl (Dilaudid) 0.2 mg Q15M PRN IV PAIN LEVEL 1-5; Start 11/11/16 at 12:00 Hydromorphone HCl (Dilaudid) 0.4 mg Q15M PRN IV PAIN LEVEL 6-10 Last administered on 11/11/16 17:15; Admin Dose 0.4 MG; Start 11/11/16 at 12:00 Oxycodone/ Acetaminophen (Percocet (5/ 325)) 1 tab Q3H PRN PO PAIN LEVEL 1-5; Start 11/11/16 at 12:00 Oxycodone/ Acetaminophen (Percocet (5/ 325)) 2 tab Q3H PRN PO PAIN LEVEL 6-10; Start 11/11/16 at 12:00 Ondansetron HCl (Zofran Inj) 4 mg Q6H PRN IV NAUSEA AND/OR VOMITING; Start at 12:00 Aspirin (Aspirin) 325 mg DAILY PO ; Start 11/12/16 at 09:00 Acetaminophen (Tylenol Tab) 650 mg Q3H PRN PO ELEVATED TEMPERATURE; Start 11/11 at 12:00 Diagnostic Test (Pha) (Accucheck) 1 ea Q1H XX Last administered on 11/12/16t 07 :17; Admin Dose 1 EA; Start 11/11/16 at 13:00 Enoxaparin Sodium (Lovenox) 40 mg DAILY SC ; Start 11/12/16 at 09:00 Assessment/Plan Additional Assessment/Plan Multivessel CAD, s/p CABG X 4 (GARCIA to LAD, SVG to PDA, SVG to Ramus, SVG to Diag) 11/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 Post-op care per Dr. Alfred 2. ASA 325 mg daily 3. Coreg 3.125 mg bid and Lipitor 80 mg qhs 4. Glycemic control 5. PT/OT angeli, ?transfer to floor QAMAR CARBALLO MD Nov 12, 2016 07:59
--- NOTE | 2016-11-12 08:17 | PN ---
DATE: 11/12/2016 SUBJECTIVE: The patient is status post 4-vessel CABG yesterday, tolerated well. The patient curren tly postoperatively is extubated, not on any pressors. No drips. The patient's pain is adequately controlled. No other acute events noted. OBJECTIVE: VITAL SIGNS: Blood pressure 122/58, respiration 22, pulse 79, temperature 100.0. HEENT: Head is normocephalic. Pupils are reactive to light. NECK: Supple. CHEST: There is a sternotomy. There is dressing over sternotomy scars, clean, dry, intact. The pa tient has mediastinal tubes, clean, dry, and intact. DERMATOLOGIC: No rashes. MUSCULOSKELETAL: No joint effusions. NEUROLOGIC: No focal deficits. LABORATORY DATA: Shows white count 13.2, hemoglobin 10.4, hematocrit 30.3, platelet count is 217. BMP within normal limits. ABG was reviewed. INR is 1.146. IMAGING: Chest x-ray reviewed. No evidence of fluid overload. ASSESSMENT AND PLAN: 1. Coronary artery disease status post 4-vessel CABG. The patient is clinically stable. Continue postoperative care per Dr. Alfred 2. Diabetes. The patient has good glycemic control. Continue current insulin regimen. 3. Hypertension, controlled. 4. Dyslipidemia. We will resume statin therapy. 5. History of asthma. Currently stable. 6. Status post respiratory failure. The patient is extubated, clinically stable. Continue to [facility]. 7. Anxiety disorder. Continue Ativan. 8. Gastrointestinal and deep venous thrombosis prophylaxis. Continue proton pump inhibitor and seq uential leg squeezers. 9. Leukocytosis, likely due to postoperative stress, no active evidence of infection. Continue per ioperative antibiotics. Continue to monitor. 10. Anemia. Etiology is likely due to postoperative blood loss. Continue to monitor H and H levels . No need for transfusion at this time. Monitor closely. Dictated By: VIPUL ALBARRAN/ALISA Conf#: [id number] DID#: [id number]
[2016-11-12] MEDS: ASPIRIN 325 MG TAB PO SCH (08:43)
[2016-11-12] MEDS: ENOXAPARIN 40 MG/0.4 ML SYG SC SCH (08:46)
--- NOTE | 2016-11-12 10:28 | RADRPT ---
PROCEDURE: XR Chest. CLINICAL INDICATION: Shortness of breath. TECHNIQUE: A single portable view of the chest was obtained. COMPARISON: 11/11/2016 FINDINGS: The right-sided [place]-Gregor catheter is unchanged. Median sternotomy wires are again noted. Again se en is a mediastinal tube and left chest tube. The cardiomediastinal silhouette is stable. A left pl eural effusion is seen with left lower lung zone airspace disease which has increased. The right jatinder g is relatively clear. The soft tissues and osseous structures are unremarkable. IMPRESSION: Probable left pleural effusion with increased left lower lung zone airspace disease which may repres ent atelectasis. RPTAT: HPNM Physician Eamon Date Time Electronically viewed and signed by Remi Luna Physician on 11/12/2016 10:28 /
[2016-11-12] MEDS ORDERED: INSULIN ASPART [NOVOLOG] 3 ML PEN SC SCH ×3 (11:30→17:35)
[2016-11-12] MEDS ORDERED: GLUCOSE GEL 15 GRAM TUBE PO PRN ×2 (12:30)
[2016-11-12] MEDS ORDERED: DEXTROSE 50% 50 ML SYRINGE IV PRN ×2 (12:30)
[2016-11-12] MEDS ORDERED: GLUCOSE GEL 15 GRAM TUBE BUCCAL PRN (12:30)
[2016-11-12] MEDS ORDERED: GLUCAGON 1 MG INJ IM PRN (12:30)
[2016-11-12] MEDS: morphine 2 MG INJ IV PRN ×2 (15:31→21:03)
[2016-11-12] MEDS: INSULIN ASPART [NOVOLOG] 3 ML PEN SC SCH ×2 (18:03→21:12)
[2016-11-12] MEDS: ATORVASTATIN 80 MG TAB PO SCH (21:02)
[2016-11-13] VITALS (24 sets, daily range): BP systolic 109–158; BP diastolic 54–87; PULSE 77–105; RESP 15–29
[2016-11-13] MEDS: ACCUCHECK XX SCH (02:00)
[2016-11-13 06:14] LABS: ADD SCAN DIFF NO
[2016-11-13 06:40] LABS: POTASSIUM 4.7 mmol/L (3.5-5.1)
[2016-11-13 06:42] LABS: CREATININE 0.76 mg/dl (0.61-1.24)
[2016-11-13 06:43] LABS: CALCIUM 8.8 mg/dl (8.4-10.2); PHOSPHORUS 2.2 mg/dl (2.5-4.9)
[2016-11-13 06:44] LABS: MAGNESIUM 1.8 mg/dl (1.7-2.5)
[2016-11-13 06:59] LABS: BASOPHILS % 0.1 % (0.0-2.0); EOSINOPHILS % 0.2 % (0.0-7.0); HEMATOCRIT 28.7 % (42.0-52.0); HEMOGLOBIN 9.8 g/dl (14.0-18.0); LYMPHOCYTES # 1.9 10^3/ul (0.8-2.9); LYMPHOCYTES % 10.4 % (15.0-51.0); MEAN CORPUSCULAR HEMOGLOBIN 30.2 pg (29.0-33.0); MEAN CORPUSCULAR HGB CONC 34.1 g/dl (32.0-37.0); MEAN CORPUSCULAR VOLUME 88.3 fl (82.0-101.0); MEAN PLATELET VOLUME 11.1 fl (7.4-10.4); MONOCYTE # 1.4 10^3/ul (0.3-0.9); MONOCYTES % 7.8 % (0.0-11.0); NEUTROPHIL # 14.7 10^3/ul (1.6-7.5); NEUTROPHILS % 80.7 % (39.0-77.0); PLATELET COUNT 190 10^3/UL (140-415); RED BLOOD COUNT 3.25 10^6/ul (4.70-6.10); RED CELL DISTRIBUTION WIDTH 13.4 % (11.5-14.5); WHITE BLOOD COUNT 18.2 10^3/ul (4.8-10.8)
--- NOTE | 2016-11-13 07:01 | RADRPT ---
PROCEDURE: XR Chest. CLINICAL INDICATION: Shortness of breath TECHNIQUE: A single AP view of the chest was obtained. COMPARISON: Chest x-ray dated 11/12/2016 FINDINGS: The right internal jugular sheath and [place]-Gregor catheter have been removed. There is a small left pleural effusion with basilar interstitial opacities. No pneumothorax is seen . The cardiomediastinal silhouette is within normal limits for size. Calcifications are seen within the aortic arch. There are post cardiac surgery changes with sternotomy wires. The osseous structu res are unremarkable. IMPRESSION: 1. Small left pleural effusion with left basilar atelectasis. Overall, lung aeration is improved w hen compared to the prior examination. 2. Aortic atherosclerosis. 3. Stable post cardiac surgery changes. 4. Interval removal of right internal jugular sheath and [place]-Gregor catheter. RPTAT: HH .Sadia Najera MD, MD Date Time Electronically viewed and signed by .Sadia Najera MD, MD on 11/13/2016 07:01 .Kirby/
[2016-11-13] MEDS ORDERED: INSULIN ASPART [NOVOLOG] 3 ML PEN SC SCH ×3 (07:35→11:30)
[2016-11-13] MEDS: INSULIN ASPART [NOVOLOG] 3 ML PEN SC SCH ×4 (08:02→20:49)
[2016-11-13] MEDS ORDERED: NEUTRA-PHOS 250 MG PACKET PO ONE (08:30)
[2016-11-13] MEDS: ENOXAPARIN 40 MG/0.4 ML SYG SC SCH (08:37)
[2016-11-13] MEDS: ASPIRIN 325 MG TAB PO SCH (08:38)
--- NOTE | 2016-11-13 09:14 | PN ---
DATE: 11/13/2016 SUBJECTIVE: The patient is stable. He is on physical therapy. No acute events overnight. The pat ient's pain is present but controlled. No fevers, chills, nausea/vomiting. OBJECTIVE: VITAL SIGNS: Blood pressure is 111/73, respiration 19, pulse 89, temperature 98.6. HEENT: Normocephalic. NECK: Supple. HEART: Regular rate. CHEST: Lungs show diminished breath sounds. The patient does have a dressing over his sternotomy s car and has a mediastinal tube in place. ABDOMEN: Soft, nontender, nondistended, no guarding. EXTREMITIES: Negative for clubbing, cyanosis, edema. DERMATOLOGIC: No rashes. MUSCULOSKELETAL: No deformities. NEUROLOGIC: No focal deficits. LABORATORY DATA: Shows a sodium 134, potassium 4.7, BUN 16, creatinine 0.76, phosphorus 2.2. White count 18.2, hemoglobin 9.8, hematocrit 28.7, platelet count is 190. IMAGING: The patient's chest x-ray shows small left pleural effusion, right internal jugular sheath and [place]-Gregor catheter. ASSESSMENT AND PLAN: 1. Coronary artery disease, status post 4-vessel CABG. The patient is clinically stable. Pain is well controlled. Continue current medical management and follow up with for further posto perative care. Continue aspirin, Coreg, Lipitor. 2. Leukocytosis, etiology is likely reactive. The patient received perioperative antibiotics, cont inue to monitor. 3. Diabetes. Continue current insulin regimen. 4. Hypertension, controlled. 5. Dyslipidemia. Continue statin therapy. 6. Asthma, currently stable. 7. Anxiety disorder. Continue Ativan. 8. Gastrointestinal and deep venous thrombosis prophylaxis. Continue proton pump inhibitors and se quential leg squeezers. 9. Anemia. Continue to monitor H and H levels. Etiology is likely due to his operative blood loss . Continue to observe. 10. Hypophosphatemia, replace with Neutra-Phos. Dictated By: VIPUL ALBARRAN/ALISA Conf#: [id number] DID#: [id number]
[2016-11-13] MEDS ORDERED: POLYETHYLENE GLYCOL 17 GM PACKET PO PRN (15:00)
--- NOTE | 2016-11-13 15:41 | PN ---
Date/Time of Note Date/Time of Note DATE: 11/13/16 TIME: 15:39 Assessment/Plan VTE Prophylaxis VTE Prophylaxis Intervention: ambulation Lines/Catheters IV Catheter Type (from Nrs): Peripheral IV Urinary Cath still in place: No Assessment/Plan Assessment/Plan Feels well. CXR OK. 230cc chest drainage. critOK. Lytes OK. Cr. OK. NSR. HR 100. Waiting transfer Exam/Review of Systems Vital Signs Vitals Vital Signs Date Time Temp Pulse Resp B/P Pulse Ox O2 Delivery O2 Flow Rate FiO2 11/13/16 14:00 100 29 137/73 98 Mechanical Ventilator 11/13/16 12:00 98.2 11/13/16 08:20 2.0 11/11/16 17:50 30 Intake and Output 11/12/16 11/12/16 11/13/16 15:00 23:00 07:00 Intake Total 440 ml 150 ml 200 ml Output Total 393 ml 232 ml 450 ml Balance 47 ml -82 ml -250 ml Results Result Diagram: 11/13/16 0555 11/13/16 0555 Results 24 hrs Laboratory Tests Test 11/12/16 17:54 11/13/16 05:55 11/13/16 07:54 11/13/16 12:44 Bedside Glucose 177 147 212 Anion Gap 13 Basophils # 0.0 Basophils % 0.1 Blood Urea Nitrogen 16 Calcium Level 8.8 Carbon Dioxide Level 29 Chloride Level 97 Creatinine 0.76 Eosinophils # 0.0 Eosinophils % 0.2 Glucose Level 156 Hematocrit 28.7 L Hemoglobin 9.8 L Lymphocytes # 1.9 Lymphocytes % 10.4 L Magnesium Level 1.8 Mean Corpuscular Hemoglobin 30.2 Mean Corpuscular Hemoglobin Concent 34.1 Mean Corpuscular Volume 88.3 Mean Platelet Volume 11.1 H Monocytes # 1.4 H Monocytes % 7.8 Neutrophils # 14.7 H Neutrophils % 80.7 H Nucleated Red Blood Cells # 0.0 Nucleated Red Blood Cells % 0.0 Phosphorus Level 2.2 #L Platelet Count 190 Potassium Level 4.7 Red Blood Count 3.25 L Red Cell Distribution Width 13.4 Sodium Level 134 L White Blood Count 18.2 #H Medications Medications Current Medications Morphine Sulfate (morphine) 2 mg Q2H PRN IV FOR NON CARDIAC PAIN (4-10) Last administered on 11/12/16t 21:03; Admin Dose 2 MG; Start 11/08/16 at 13:30 Atorvastatin Calcium (Lipitor) 80 mg HS PO Last administered on 11/12/16 21:02 ; Admin Dose 80 MG; Start 11/08/16 at 21:00 Nitroglycerin (Nitroglycerin (Sl Tab) 0.4 Mg) 1 tab [id number] PRN SL CHEST PAIN ; Start 11/08/16 at 14:00 Ondansetron HCl (Zofran (Ped)) 4 mg Q6 PRN PO nausea; Start 11/08/16 at 14:00 Hydromorphone HCl (Dilaudid) 0.2 mg Q15M PRN IV PAIN LEVEL 1-5; Start 11/11/16 at 12:00 Hydromorphone HCl (Dilaudid) 0.4 mg Q15M PRN IV PAIN LEVEL 6-10 Last administered on 11/11/16 17:15; Admin Dose 0.4 MG; Start 11/11/16 at 12:00 Oxycodone/ Acetaminophen (Percocet (5/ 325)) 1 tab Q3H PRN PO PAIN LEVEL 1-5; Start 11/11/16 at 12:00 Oxycodone/ Acetaminophen (Percocet (5/ 325)) 2 tab Q3H PRN PO PAIN LEVEL 6-10; Start 11/11/16 at 12:00 Ondansetron HCl (Zofran Inj) 4 mg Q6H PRN IV NAUSEA AND/OR VOMITING; Start at 12:00 Aspirin (Aspirin) 325 mg DAILY PO Last administered on 11/13/16 08:38; Admin Dose 325 MG; Start 11/12/16 at 09:00 Acetaminophen (Tylenol Tab) 650 mg Q3H PRN PO ELEVATED TEMPERATURE; Start 11/11 at 12:00 Enoxaparin Sodium (Lovenox) 40 mg DAILY SC Last administered on 11/13/16 08:37 ; Admin Dose 40 MG; Start 11/12/16 at 09:00 Carvedilol (Coreg) 3.125 mg BID PO Last administered on 11/13/16 08:38; Admin Dose 3.125 MG; Start 11/12/16 at 09:00 Diagnostic Test (Pha) (Accucheck) XX Last administered on 11/13/16 02: 00; Admin Dose 1 EA; Start 11/13/16 at 02:00 Miscellaneous Information 1 ea NOTE XX ; Start 11/12/16 at 12:30 Glucose (Glutose) 15 gm Q15M PRN PO DECREASED GLUCOSE; Start 11/12/16 at 12:30 Glucose (Glutose) 22.5 gm Q15M PRN PO DECREASED GLUCOSE; Start 11/12/16 at 12: 30 Dextrose (D50w Syringe) 25 ml Q15M PRN IV DECREASED GLUCOSE; Start 11/12/16 at 12:30 Dextrose (D50w Syringe) 50 ml Q15M PRN IV DECREASED GLUCOSE; Start 11/12/16 at 12:30 Glucagon (Glucagen) 1 mg Q15M PRN IM DECREASED GLUCOSE; Start 11/12/16 at 12:30 Glucose (Glutose) 15 gm Q15M PRN BUCCAL DECREASED GLUCOSE; Start 11/12/16 at 12 :30 Docusate Sodium (Colace) 100 mg BID PO ; Start 11/13/16 at 21:00 Polyethylene Glycol (Miralax) 17 gm DAILY PRN PO CONSTIPATION Last administered on 11/13/16 15:29; Admin Dose 17 GM; Start 11/13/16 at 15:00 TYLER GROVE MD Nov 13, 2016 15:40
[2016-11-13] MEDS: DOCUSATE SODIUM 100 MG CAP PO SCH (20:41)
[2016-11-13] MEDS: ATORVASTATIN 80 MG TAB PO SCH (20:41)
[2016-11-13] MEDS: OXYCODONE/ACETAMINOPHEN (5/325) TAB PO PRN (20:41)
--- NOTE | 2016-11-13 22:23 | CONS ---
Date/Time of Note Date/Time of Note DATE: 11/13/16 TIME: 22:22 Assessment/Plan Assessment/Plan Chief Complaint/Hosp Course Assessment: Multivessel CAD, s/p CABG X 4 (GARCIA to LAD, SVG to PDA, SVG to Ramus, SVG to Diag) 11/11/16; pre-op LVEF 45% HTN DM Dyslipidemia Recommendations 1. Post-op care per CT surgery 2. ASA 325 mg daily 3. Coreg 3.125 mg bid and Lipitor 80 mg qhs 4. Glycemic control 5. PT/OT Problems: Consultation Date/Type/Reason Admit Date/Time Nov 08, 2016 at 13:14 Initial Consult Date Type of Consultation: Cardiology 24 HR Interval Summary Free Text/Dictation Doing well. No chest pain or shortness of breath. Detailed Summary Additional Comments 14 point review of systems without changes. Exam/Review of Systems Vital Signs Vitals Vital Signs Date Time Temp Pulse Resp B/P Pulse Ox O2 Delivery O2 Flow Rate FiO2 11/13/16 18:00 86 20 143/76 100 Mechanical Ventilator 11/13/16 16:00 97.7 11/13/16 08:20 2.0 11/11/16 17:50 30 Intake and Output 11/12/16 11/12/16 11/13/16 15:00 23:00 07:00 Intake Total 440 ml 150 ml 200 ml Output Total 393 ml 232 ml 450 ml Balance 47 ml -82 ml -250 ml Exam Gen: NAD, alert HEENT: NCAT Neck: No JVD Heart: RRR, no m/r/g/, S1S2, no S3S4, no c/c/e, sternotomy incision covered with gauze Lungs: Equal BS, no crackles/wheezes Abdomen: positive BS, s/nt/nd, drains, epicardial leads in place Ext: no c/c/e, warm Results Result Diagram: 11/13/16 0555 11/13/16 0555 Results 24 hrs Laboratory Tests Test 11/13/16 05:55 11/13/16 07:54 11/13/16 12:44 11/13/16 17:06 Anion Gap 13 Basophils # 0.0 Basophils % 0.1 Blood Urea Nitrogen 16 Calcium Level 8.8 Carbon Dioxide Level 29 Chloride Level 97 Creatinine 0.76 Eosinophils # 0.0 Eosinophils % 0.2 Glucose Level 156 Hematocrit 28.7 L Hemoglobin 9.8 L Lymphocytes # 1.9 Lymphocytes % 10.4 L Magnesium Level 1.8 Mean Corpuscular Hemoglobin 30.2 Mean Corpuscular Hemoglobin Concent 34.1 Mean Corpuscular Volume 88.3 Mean Platelet Volume 11.1 H Monocytes # 1.4 H Monocytes % 7.8 Neutrophils # 14.7 H Neutrophils % 80.7 H Nucleated Red Blood Cells # 0.0 Nucleated Red Blood Cells % 0.0 Phosphorus Level 2.2 #L Platelet Count 190 Potassium Level 4.7 Red Blood Count 3.25 L Red Cell Distribution Width 13.4 Sodium Level 134 L White Blood Count 18.2 #H Bedside Glucose 147 212 207 Test 11/13/16 20:46 Bedside Glucose 176 Medications Medications Current Medications Morphine Sulfate (morphine) 2 mg Q2H PRN IV FOR NON CARDIAC PAIN (4-10) Last administered on 11/12/16 21:03; Admin Dose 2 MG; Start 11/08/16 at 13:30 Atorvastatin Calcium (Lipitor) 80 mg HS PO Last administered on 11/13/16 20:41 ; Admin Dose 80 MG; Start 11/08/16 at 21:00 Nitroglycerin (Nitroglycerin (Sl Tab) 0.4 Mg) 1 tab [id number] PRN SL CHEST PAIN ; Start 11/08/16 at 14:00 Ondansetron HCl (Zofran (Ped)) 4 mg Q6 PRN PO nausea; Start 11/08/16 at 14:00 Hydromorphone HCl (Dilaudid) 0.2 mg Q15M PRN IV PAIN LEVEL 1-5; Start 11/11/16 at 12:00 Hydromorphone HCl (Dilaudid) 0.4 mg Q15M PRN IV PAIN LEVEL 6-10 Last administered on 11/11/16 17:15; Admin Dose 0.4 MG; Start 11/11/16 at 12:00 Oxycodone/ Acetaminophen (Percocet (5/ 325)) 1 tab Q3H PRN PO PAIN LEVEL 1-5 Last administered on 11/13/16 20:41; Admin Dose 1 TAB; Start 11/11/16 at 12:00 Oxycodone/ Acetaminophen (Percocet (5/ 325)) 2 tab Q3H PRN PO PAIN LEVEL 6-10; Start 11/11/16 at 12:00 Ondansetron HCl (Zofran Inj) 4 mg Q6H PRN IV NAUSEA AND/OR VOMITING; Start at 12:00 Aspirin (Aspirin) 325 mg DAILY PO Last administered on 11/13/16 08:38; Admin Dose 325 MG; Start 11/12/16 at 09:00 Acetaminophen (Tylenol Tab) 650 mg Q3H PRN PO ELEVATED TEMPERATURE; Start 11/11 at 12:00 Enoxaparin Sodium (Lovenox) 40 mg DAILY SC Last administered on 11/13/16 08:37 ; Admin Dose 40 MG; Start 11/12/16 at 09:00 Carvedilol (Coreg) 3.125 mg BID PO Last administered on 11/13/16 20:42; Admin Dose 3.125 MG; Start 11/12/16 at 09:00 Diagnostic Test (Pha) (Accucheck) 1 ea 02 XX Last administered on 11/13/16 02: 00; Admin Dose 1 EA; Start 11/13/16 at 02:00 Miscellaneous Information 1 ea NOTE XX ; Start 11/12/16 at 12:30 Glucose (Glutose) 15 gm Q15M PRN PO DECREASED GLUCOSE; Start 11/12/16 at 12:30 Glucose (Glutose) 22.5 gm Q15M PRN PO DECREASED GLUCOSE; Start 11/12/16 at 12: 30 Dextrose (D50w Syringe) 25 ml Q15M PRN IV DECREASED GLUCOSE; Start 11/12/16 at 12:30 Dextrose (D50w Syringe) 50 ml Q15M PRN IV DECREASED GLUCOSE; Start 11/12/16 at 12:30 Glucagon (Glucagen) 1 mg Q15M PRN IM DECREASED GLUCOSE; Start 11/12/16 at 12:30 Glucose (Glutose) 15 gm Q15M PRN BUCCAL DECREASED GLUCOSE; Start 11/12/16 at 12 :30 Docusate Sodium (Colace) 100 mg BID PO Last administered on 11/13/16 20:41; Admin Dose 100 MG; Start 11/13/16 at 21:00 Polyethylene Glycol (Miralax) 17 gm DAILY PRN PO CONSTIPATION Last administered on 11/13/16 15:29; Admin Dose 17 GM; Start 11/13/16 at 15:00 ANNIE CASANOVA MDb 27, 2017 22:23
[2016-11-14] VITALS (19 sets, daily range): BP systolic 89–145; BP diastolic 64–84; PULSE 70–104; RESP 14–24
[2016-11-14] MEDS: ACCUCHECK XX SCH (02:00)
[2016-11-14 04:43] LABS: ADD SCAN DIFF NO
[2016-11-14 04:54] LABS: BASOPHILS % 0.3 % (0.0-2.0); EOSINOPHILS # 0.1 10^3/ul (0.0-0.5); EOSINOPHILS % 0.5 % (0.0-7.0); HEMATOCRIT 26.7 % (42.0-52.0); HEMOGLOBIN 9.3 g/dl (14.0-18.0); LYMPHOCYTES % 12.4 % (15.0-51.0); MEAN CORPUSCULAR HEMOGLOBIN 30.2 pg (29.0-33.0); MEAN CORPUSCULAR HGB CONC 34.8 g/dl (32.0-37.0); MEAN CORPUSCULAR VOLUME 86.7 fl (82.0-101.0); MEAN PLATELET VOLUME 10.9 fl (7.4-10.4); MONOCYTE # 1.2 10^3/ul (0.3-0.9); MONOCYTES % 7.7 % (0.0-11.0); NEUTROPHIL # 12.4 10^3/ul (1.6-7.5); NEUTROPHILS % 78.7 % (39.0-77.0); PLATELET COUNT 199 10^3/UL (140-415); RED BLOOD COUNT 3.08 10^6/ul (4.70-6.10); RED CELL DISTRIBUTION WIDTH 13.4 % (11.5-14.5); WHITE BLOOD COUNT 15.8 10^3/ul (4.8-10.8)
[2016-11-14 04:59] LABS: CREATININE 0.66 mg/dl (0.61-1.24)
[2016-11-14 05:00] LABS: CALCIUM 8.5 mg/dl (8.4-10.2); MAGNESIUM 2.1 mg/dl (1.7-2.5); PHOSPHORUS 2.6 mg/dl (2.5-4.9)
[2016-11-14 05:13] LABS: POTASSIUM 4.3 mmol/L (3.5-5.1)
--- NOTE | 2016-11-14 07:04 | PN ---
Date/Time of Note Date/Time of Note DATE: 11/14/16 TIME: 07:02 Assessment/Plan Lines/Catheters IV Catheter Type (from [facility]): Peripheral IV Prinlge in Place (from [facility]): No Assessment/Plan Assessment/Plan NSR labs ok, WBC 15K will monitor awaiting transfer to [facility] chest tube output 350cc/24hrs. leave in another day Exam/Review of Systems Vital Signs Vitals Vital Signs Date Time Temp Pulse Resp B/P Pulse Ox O2 Delivery O2 Flow Rate FiO2 11/14/16 04:00 70 11/14/16 01:38 2.0 11/14/16 00:00 16 119/74 99 11/13/16 22:00 Room Air 11/13/16 16:00 97.7 11/11/16 17:50 30 Intake and Output 11/13/16 11/13/16 11/14/16 15:00 23:00 07:00 Intake Total 570 ml 420 ml 350 ml Output Total 1150 ml 400 ml 675 ml Balance -580 ml 20 ml -325 ml Results Result Diagram: 11/14/16 0432 11/14/16 0432 KENJI FLORES MD Nov 14, 2016 07:03
[2016-11-14] MEDS: INSULIN ASPART [NOVOLOG] 3 ML PEN SC SCH ×4 (07:19→20:59)
--- NOTE | 2016-11-14 08:18 | RADRPT ---
PROCEDURE: XR Chest. CLINICAL INDICATION: Shortness of breath. Left chest tube. TECHNIQUE: Single frontal view. COMPARISON: 11/13/2016. FINDINGS: The left chest tube remains in satisfactory position. There is mild left basilar atelectasis. Ther e are sternal wires and mediastinal clips. The right lung is clear. The heart is mildly enlarged. There is no pleural effusion. There is no pneumothorax. IMPRESSION: 1. Left chest tube in satisfactory position. 2. Mild left basilar atelectasis. 3. Previous median sternotomy. 4. Mild cardiomegaly. RPTAT: QQ .Red Parr MD, MD Date Time Electronically viewed and signed by .Red Parr MD, MD on 11/14/2016 08:18 .R/
[2016-11-14] MEDS: ASPIRIN 325 MG TAB PO SCH (08:23)
[2016-11-14] MEDS: ENOXAPARIN 40 MG/0.4 ML SYG SC SCH (08:30)
[2016-11-14] MEDS: DOCUSATE SODIUM 100 MG CAP PO SCH ×2 (08:31→21:02)
--- NOTE | 2016-11-14 09:08 | PN ---
DATE: 11/14/2016 SUBJECTIVE: The patient is stable. No acute events overnight. No fevers, chills, nausea, vomiting . No shortness of breath. The patient's pain is adequately controlled. OBJECTIVE: VITAL SIGNS: Blood pressure 121/76, respirations 15, pulse 99, temperature 98.2. HEENT: Head is normocephalic. NECK: Supple. HEART: Regular rate. LUNGS: Show diminished breath sounds at base. Patient has a chest tube in place. ABDOMEN: Soft, nontender to palpation. No rebound or guarding. EXTREMITIES: Negative for clubbing, cyanosis. No edema. DERMATOLOGIC: No rashes. MUSCULOSKELETAL: No joint effusions. NEUROLOGIC: No change in exam. LABORATORY DATA: Shows BMP within normal limits. White count 15.8, hemoglobin 9.3, hematocrit 26.7 , platelet count is 199. ASSESSMENT AND PLAN: 1. Coronary artery disease, status post 4-vessel CABG. The patient is currently stable. Continue current medical management and follow up with CT Surgery for any further recommendations, Dr. Alfred. Continue aspirin, Coreg, Lipitor. 2. Leukocytosis: Likely reactive. The patient is status post perioperative antibiotics. Continue to monitor. 3. Diabetes: Continue current insulin regimen. 4. Hypertension: Controlled. Continue current blood pressure regimen. 5. Dyslipidemia: Continue statin therapy. 6. Anxiety disorder: Continue Ativan p.r.n. 7. Anemia: Continue to monitor hemoglobin and hematocrit levels. 8. Gastrointestinal and deep venous thrombosis prophylaxis: Continue proton pump inhibitor, Loveno x, sequential leg squeezers. Dictated By: VIPUL ALBARRAN/ALISA Conf#: [id number] DID#: [id number]
--- NOTE | 2016-11-14 15:49 | RADRPT ---
Vent Rate: 80 bpm RR Interval: 0 msec [place] Interval: 186 msec QRS Duration: 88 msec QT Interval: 352 msec QTC Interval: 405 msec P-R-T [place]: 54 - 74 - 24 degrees Normal sinus rhythm ST elevation, consider anterolateral injury or acute infarct ST elevation, consider inferior injury or acute infarcT Abnormal ECG Electronically Signed By: Iron Grijalva [id number]
[2016-11-14] MEDS: metFORMIN 500 MG TAB PO SCH (17:45)
--- NOTE | 2016-11-14 17:52 | RADRPT ---
Vent Rate: 84 bpm RR Interval: 0 msec [place] Interval: 170 msec QRS Duration: 90 msec QT Interval: 354 msec QTC Interval: 418 msec P-R-T [place]: 52 - 70 - -9 degrees Sinus rhythm with occasional premature ventricular complexes Nonspecific T wave abnormality Abnormal ECG Electronically Signed By: Camilo Price [id number]
--- NOTE | 2016-11-14 17:57 | RADRPT ---
Vent Rate: 95 bpm RR Interval: [address] Interval: 200 msec QRS Duration: 96 msec QT Interval: 364 msec QTC Interval: 457 msec P-R-T [place]: 89 - 85 - 66 degrees Normal sinus rhythm Non specific ST/T changes Abnormal ECG Electronically Signed By: Camilo Price [id number]
--- NOTE | 2016-11-14 17:59 | RADRPT ---
Vent Rate: 91 bpm RR Interval: 0 msec [place] Interval: 216 msec QRS Duration: 92 msec QT Interval: 346 msec QTC Interval: 425 msec P-R-T [place]: 40 - 70 - 34 degrees Sinus rhythm with 1st degree AV block ST elevation, consider anterior injury or acute infarct ACUTE SC Abnormal ECG Electronically Signed By: Camilo Price [id number]
--- NOTE | 2016-11-14 18:00 | RADRPT ---
Vent Rate: 77 bpm RR Interval: 0 msec [place] Interval: 184 msec QRS Duration: 92 msec QT Interval: 358 msec QTC Interval: 405 msec P-R-T [place]: 56 - 77 - 26 degrees Normal sinus rhythm with sinus arrhythmia Nonspecific ST and T wave abnormality Abnormal ECG Electronically Signed By: Camilo Price [id number]
[2016-11-14] MEDS: ATORVASTATIN 80 MG TAB PO SCH (21:02)
[2016-11-15] VITALS (13 sets, daily range): BP systolic 102–136; BP diastolic 57–71; PULSE 88–124; RESP 18–21
[2016-11-15] MEDS: ACCUCHECK XX SCH (02:00)
[2016-11-15] MEDS: metFORMIN 500 MG TAB PO SCH ×2 (07:30→17:34)
[2016-11-15] MEDS: INSULIN ASPART [NOVOLOG] 3 ML PEN SC SCH ×4 (07:35→20:58)
--- NOTE | 2016-11-15 07:50 | PN ---
Date/Time of Note Date/Time of Note DATE: 11/15/16 TIME: 07:49 Assessment/Plan Lines/Catheters IV Catheter Type (from Nrs): Saline Lock Pringle in Place (from Nrs): No Assessment/Plan Assessment/Plan remove chest tubes and pacing wires mobilize home tomorrow. Exam/Review of Systems Vital Signs Vitals Vital Signs Date Time Temp Pulse Resp B/P Pulse Ox O2 Delivery O2 Flow Rate FiO2 11/15/16 06:58 98.7 97 20 108/57 98 11/14/16 23:38 2.0 11/14/16 20:00 Nasal Cannula 11/11/16 17:50 30 Intake and Output 11/14/16 11/14/16 11/15/16 15:00 23:00 07:00 Intake Total 840 ml 360 ml 400 ml Output Total 950 ml 700 ml 920 ml Balance -110 ml -340 ml -520 ml Results Result Diagram: 11/14/16 0432 11/14/16 0432 KENJI FLORES MD Nov 15, 2016 07:50
[2016-11-15] MEDS: ASPIRIN 325 MG TAB PO SCH (09:05)
[2016-11-15] MEDS: DOCUSATE SODIUM 100 MG CAP PO SCH ×2 (09:05→20:58)
[2016-11-15] MEDS: ENOXAPARIN 40 MG/0.4 ML SYG SC SCH (09:07)
[2016-11-15] MEDS: OXYCODONE/ACETAMINOPHEN (5/325) TAB PO PRN (09:11)
--- NOTE | 2016-11-15 09:12 | RADRPT ---
PROCEDURE: Chest Radiograph. CLINICAL INDICATION: Coronary artery disease TECHNIQUE: Single frontal chest radiograph. COMPARISON: Chest radiograph 11/14/2016 FINDINGS: Patient is status post sternotomy. The heart is magnified and likely mildly enlarged. A left basil ar chest tube remains in place. There is no pneumothorax identified. There is mild left basilar at electasis. No confluent or lobar infiltrate is seen. No pleural effusion is identified. IMPRESSION: 1. Stable radiographic appearance of chest compared to 11/14/2016. RPTAT: KK .Shawn Hadley MD, MD Date Time Electronically viewed and signed by .Shawn Hadley MD, MD on 11/15/2016 09:12 .B/
--- NOTE | 2016-11-15 09:48 | PN ---
DATE: 11/15/2016 SUBJECTIVE: The patient is stable, no acute events overnight. The patient was transferred from ICU to telemetry. No other events noted. OBJECTIVE: VITAL SIGNS: Blood pressure 108/57, respirations 20, pulse 77, temperature 98.7. HEENT: Head is normocephalic. NECK: Supple. HEART: Regular rate. LUNGS: Show diminished breath sounds at the base. ABDOMEN: Soft, nontender to palpation. No rebound or guarding. EXTREMITIES: Negative for clubbing, cyanosis. No edema. DERMATOLOGIC: No rashes. MUSCULOSKELETAL: No joint effusions. NEUROLOGIC: No focal deficits. CHEST: Patient has a healing sternotomy scar. LABORATORY DATA: Currently pending. ASSESSMENT AND PLAN: 1. Coronary artery disease, status post 4-vessel coronary artery bypass graft. Patient is currentl y stable. Continue current medical management. 2. Leukocytosis, likely reactive. Continue to monitor. The patient is status post perioperative a ntibiotics. 3. Diabetes. Continue metformin, Accu-Cheks, insulin sliding scale. 4. Hypertension, controlled. 5. . Continue statin therapy. 5. Anxiety disorder. Continue Ativan. 6. Anemia. Continue to monitor hemoglobin and hematocrit levels. 7. Gastrointestinal and deep venous thrombosis prophylaxis. Continue proton pump inhibitor and Feliz enox, sequential leg squeezers. Dictated By: VIPUL ALBARRAN/ALISA Conf#: [id number] DID#: [id number]
[2016-11-15 12:18] LABS: ADD SCAN DIFF NO
[2016-11-15 12:21] LABS: BASOPHILS % 0.3 % (0.0-2.0); EOSINOPHILS # 0.2 10^3/ul (0.0-0.5); EOSINOPHILS % 1.4 % (0.0-7.0); HEMATOCRIT 27.4 % (42.0-52.0); HEMOGLOBIN 9.5 g/dl (14.0-18.0); LYMPHOCYTES # 2.1 10^3/ul (0.8-2.9); LYMPHOCYTES % 15.4 % (15.0-51.0); MEAN CORPUSCULAR HEMOGLOBIN 30.1 pg (29.0-33.0); MEAN CORPUSCULAR HGB CONC 34.7 g/dl (32.0-37.0); MEAN CORPUSCULAR VOLUME 86.7 fl (82.0-101.0); MEAN PLATELET VOLUME 10.4 fl (7.4-10.4); MONOCYTE # 1.2 10^3/ul (0.3-0.9); NEUTROPHIL # 9.9 10^3/ul (1.6-7.5); NEUTROPHILS % 73.2 % (39.0-77.0); PLATELET COUNT 293 10^3/UL (140-415); RED BLOOD COUNT 3.16 10^6/ul (4.70-6.10); RED CELL DISTRIBUTION WIDTH 13.5 % (11.5-14.5); WHITE BLOOD COUNT 13.5 10^3/ul (4.8-10.8)
--- NOTE | 2016-11-15 16:04 | CONS ---
Date/Time of Note Date/Time of Note DATE: 11/15/16 TIME: 16:03 Assessment/Plan Assessment/Plan Chief Complaint/Hosp Course Assessment: Multivessel CAD, s/p CABG X 4 (GARCIA to LAD, SVG to PDA, SVG to Ramus, SVG to Diag) 11/11/16; pre-op LVEF 45% HTN DM Dyslipidemia Recommendations 1. Post-op care per CT surgery 2. ASA 325 mg daily 3. Coreg 3.125 mg bid and Lipitor 80 mg qhs 4. Glycemic control 5. PT/OT Problems: Consultation Date/Type/Reason Admit Date/Time Nov 08, 2016 at 13:14 Type of Consultation: Cardiology 24 HR Interval Summary Free Text/Dictation Transferred out of ICU. Chest tube and pacing wires removed. No chest pain or shortness of breath. Detailed Summary Additional Comments 14 point review of systems without changes. Exam/Review of Systems Vital Signs Vitals Vital Signs Date Time Temp Pulse Resp B/P Pulse Ox O2 Delivery O2 Flow Rate FiO2 11/15/16 15:19 98.0 87 18 102/71 95 11/15/16 07:53 Nasal Cannula 2.0 11/11/16 17:50 30 Intake and Output 11/14/16 11/14/16 11/15/16 15:00 23:00 07:00 Intake Total 840 ml 360 ml 400 ml Output Total 950 ml 700 ml 920 ml Balance -110 ml -340 ml -520 ml Exam Gen: NAD, alert HEENT: NCAT Neck: No JVD Heart: RRR, no m/r/g/, S1S2, no S3S4, no c/c/e, sternotomy incision covered with gauze Lungs: Equal BS, no crackles/wheezes Abdomen: positive BS, s/nt/nd Ext: no c/c/e, warm Results Result Diagram: 11/15/16 1155 11/14/16 0432 Results 24 hrs Laboratory Tests Test 11/14/16 17:43 11/14/16 20:57 11/15/16 07:27 11/15/16 11:39 Bedside Glucose 157 177 212 183 Test 11/15/16 11:55 Basophils # 0.0 Basophils % 0.3 Eosinophils # 0.2 Eosinophils % 1.4 Hematocrit 27.4 L Hemoglobin 9.5 L Lymphocytes # 2.1 Lymphocytes % 15.4 Mean Corpuscular Hemoglobin 30.1 Mean Corpuscular Hemoglobin Concent 34.7 Mean Corpuscular Volume 86.7 Mean Platelet Volume 10.4 Monocytes # 1.2 H Monocytes % 9.0 Neutrophils # 9.9 H Neutrophils % 73.2 Nucleated Red Blood Cells # 0.0 Nucleated Red Blood Cells % 0.0 Platelet Count 293 # Red Blood Count 3.16 L Red Cell Distribution Width 13.5 White Blood Count 13.5 H Medications Medications Current Medications Morphine Sulfate (morphine) 2 mg Q2H PRN IV FOR NON CARDIAC PAIN (4-10) Last administered on 11/12/16 21:03; Admin Dose 2 MG; Start 11/08/16 at 13:30 Atorvastatin Calcium (Lipitor) 80 mg HS PO Last administered on 11/14/16 21:02 ; Admin Dose 80 MG; Start 11/08/16 at 21:00 Nitroglycerin (Nitroglycerin (Sl Tab) 0.4 Mg) 1 tab [id number] PRN SL CHEST PAIN ; Start 11/08/16 at 14:00 Ondansetron HCl (Zofran (Ped)) 4 mg Q6 PRN PO nausea; Start 11/08/16 at 14:00 Hydromorphone HCl (Dilaudid) 0.2 mg Q15M PRN IV PAIN LEVEL 1-5; Start 11/11/16 at 12:00 Hydromorphone HCl (Dilaudid) 0.4 mg Q15M PRN IV PAIN LEVEL 6-10 Last administered on 11/11/16 17:15; Admin Dose 0.4 MG; Start 11/11/16 at 12:00 Oxycodone/ Acetaminophen (Percocet (5/ 325)) 1 tab Q3H PRN PO PAIN LEVEL 1-5 Last administered on 11/15/16 09:11; Admin Dose 1 TAB; Start 11/11/16 at 12:00 Oxycodone/ Acetaminophen (Percocet (5/ 325)) 2 tab Q3H PRN PO PAIN LEVEL 6-10; Start 11/11/16 at 12:00 Ondansetron HCl (Zofran Inj) 4 mg Q6H PRN IV NAUSEA AND/OR VOMITING; Start at 12:00 Aspirin (Aspirin) 325 mg DAILY PO Last administered on 11/15/16 09:05; Admin Dose 325 MG; Start 11/12/16 at 09:00 Acetaminophen (Tylenol Tab) 650 mg Q3H PRN PO ELEVATED TEMPERATURE; Start 11/11 at 12:00 Enoxaparin Sodium (Lovenox) 40 mg DAILY SC Last administered on 11/15/16 09:07 ; Admin Dose 40 MG; Start 11/12/16 at 09:00 Carvedilol (Coreg) 3.125 mg BID PO Last administered on 11/15/16 09:06; Admin Dose 3.125 MG; Start 11/12/16 at 09:00 Diagnostic Test (Pha) (Accucheck) 1 ea 02 XX Last administered on 11/14/16 02: 00; Admin Dose 1 EA; Start 11/13/16 at 02:00 Miscellaneous Information 1 ea NOTE XX ; Start 11/12/16 at 12:30 Glucose (Glutose) 15 gm Q15M PRN PO DECREASED GLUCOSE; Start 11/12/16 at 12:30 Glucose (Glutose) 22.5 gm Q15M PRN PO DECREASED GLUCOSE; Start 11/12/16 at 12: 30 Dextrose (D50w Syringe) 25 ml Q15M PRN IV DECREASED GLUCOSE; Start 11/12/16 at 12:30 Dextrose (D50w Syringe) 50 ml Q15M PRN IV DECREASED GLUCOSE; Start 11/12/16 at 12:30 Glucagon (Glucagen) 1 mg Q15M PRN IM DECREASED GLUCOSE; Start 11/12/16 at 12:30 Glucose (Glutose) 15 gm Q15M PRN BUCCAL DECREASED GLUCOSE; Start 11/12/16 at 12 :30 Docusate Sodium (Colace) 100 mg BID PO Last administered on 11/15/16 09:05; Admin Dose 100 MG; Start 11/13/16 at 21:00 Polyethylene Glycol (Miralax) 17 gm DAILY PRN PO CONSTIPATION Last administered on 11/13/16 15:29; Admin Dose 17 GM; Start 11/13/16 at 15:00 ANNIE CASANOVA MD Nov 15, 2016 16:04
[2016-11-15] MEDS: ATORVASTATIN 80 MG TAB PO SCH (20:58)
[2016-11-16] VITALS (12 sets, daily range): BP systolic 119–183; BP diastolic 60–87; PULSE 92–102; RESP 16–20
[2016-11-16] MEDS: ACCUCHECK XX SCH ×2 (02:00→20:41)
[2016-11-16 07:29] LABS: ADD SCAN DIFF NO
[2016-11-16 07:31] LABS: BASOPHIL # 0.1 10^3/ul (0.0-0.1); BASOPHILS % 0.4 % (0.0-2.0); EOSINOPHILS # 0.3 10^3/ul (0.0-0.5); EOSINOPHILS % 1.8 % (0.0-7.0); HEMATOCRIT 26.5 % (42.0-52.0); HEMOGLOBIN 9.1 g/dl (14.0-18.0); LYMPHOCYTES # 2.3 10^3/ul (0.8-2.9); LYMPHOCYTES % 16.1 % (15.0-51.0); MEAN CORPUSCULAR HGB CONC 34.3 g/dl (32.0-37.0); MEAN CORPUSCULAR VOLUME 87.5 fl (82.0-101.0); MEAN PLATELET VOLUME 10.2 fl (7.4-10.4); MONOCYTE # 1.2 10^3/ul (0.3-0.9); MONOCYTES % 8.8 % (0.0-11.0); NEUTROPHIL # 10.1 10^3/ul (1.6-7.5); NEUTROPHILS % 72.2 % (39.0-77.0); PLATELET COUNT 347 10^3/UL (140-415); RED BLOOD COUNT 3.03 10^6/ul (4.70-6.10); RED CELL DISTRIBUTION WIDTH 13.5 % (11.5-14.5); WHITE BLOOD COUNT 13.9 10^3/ul (4.8-10.8)
[2016-11-16 07:46] LABS: POTASSIUM 4.2 mmol/L (3.5-5.1)
[2016-11-16 07:48] LABS: CREATININE 0.7 mg/dl (0.61-1.24)
[2016-11-16 07:49] LABS: CALCIUM 8.4 mg/dl (8.4-10.2); PHOSPHORUS 3.2 mg/dl (2.5-4.9)
[2016-11-16] MEDS: INSULIN ASPART [NOVOLOG] 3 ML PEN SC SCH ×4 (07:55→20:39)
--- NOTE | 2016-11-16 08:47 | PN ---
DATE: 11/16/2016 SUBJECTIVE: The patient is improving. Still complains of general chest pain. The patient would li ke to stay 1 more day in the hospital, does not feel comfortable yet going home. No other events no marielena. OBJECTIVE: VITAL SIGNS: Blood pressure 119/68, respirations 20, pulse 79, temperature 98.0. HEENT: Head is normocephalic. NECK: Supple. HEART: Regular rate. Chest shows a sternotomy scar, well healed. ABDOMEN: Soft, nontender to palpation without rebound or guarding. LUNGS: Show diminished breath sounds at base, otherwise clear. EXTREMITIES: Negative for clubbing, cyanosis, no edema. DERMATOLOGIC: No rashes. MUSCULOSKELETAL: No joint effusions. NEUROLOGIC: No focal deficits. MEDICATIONS: Patient medications have been reviewed. LABORATORY DATA: Currently pending. IMAGING STUDIES: Chest x-ray on 11/15 shows no significant change. ASSESSMENT AND PLAN: 1. Coronary artery disease, status post 4-vessel CABG. Patient is currently stable. Continue curr nt medical management. 2. Leukocytosis, likely reactive. Continue to monitor. Trending down slowly. 3. Diabetes. Continue current insulin regimen. 4. Hypertension, controlled. 5. Dyslipidemia. Continue statin therapy. 6. Anemia. Continue to monitor and hemoglobin and hematocrit levels. 7. Anxiety disorder. Continue Ativan. 8. Gastrointestinal and deep venous thrombosis prophylaxis. Continue proton pump inhibitor and Feliz enox. DISPOSITION: Plan for discharge in the a.m. Continue physical therapy. Dictated By: VIPUL ALBARRAN/ALISA Conf#: [id number] DID#: [id number]
[2016-11-16] MEDS: ASPIRIN 325 MG TAB PO SCH (09:15)
[2016-11-16] MEDS: metFORMIN 500 MG TAB PO SCH ×2 (09:16→17:40)
[2016-11-16] MEDS: DOCUSATE SODIUM 100 MG CAP PO SCH ×2 (09:16→20:39)
[2016-11-16] MEDS: ENOXAPARIN 40 MG/0.4 ML SYG SC SCH (09:23)
--- NOTE | 2016-11-16 10:48 | RADRPT ---
PROCEDURE: XR Chest. CLINICAL INDICATION: Shortness of breath. TECHNIQUE: Single frontal view. COMPARISON: 11/15/2016. FINDINGS: There is mild left basilar atelectasis. The lungs are otherwise clear. The left chest tube has bee n removed. There are sternal wires and mediastinal clips. The heart is mildly enlarged. There is no pleural effusion. There is no pneumothorax. IMPRESSION: 1. Left chest tube removed. 2. Previous median sternotomy. 3. Mild left basilar atelectasis. RPTAT: QQ .Red Parr MD, MD Date Time Electronically viewed and signed by .Red Parr MD, MD on 11/16/2016 10:48 .R/
[2016-11-16] MEDS: ATORVASTATIN 80 MG TAB PO SCH (20:38)
--- NOTE | 2016-11-16 21:11 | CONS ---
Date/Time of Note Date/Time of Note DATE: 11/16/16 TIME: 21:10 Assessment/Plan Assessment/Plan Chief Complaint/Hosp Course Assessment: Multivessel CAD, s/p CABG X 4 (GARCIA to LAD, SVG to PDA, SVG to Ramus, SVG to Diag) 11/11/16; pre-op LVEF 45% HTN DM Dyslipidemia Recommendations 1. Post-op care per CT surgery 2. ASA 325 mg daily 3. Coreg 3.125 mg bid and Lipitor 80 mg qhs 4. Glycemic control 5. Discharge planning Problems: Consultation Date/Type/Reason Admit Date/Time Nov 08, 2016 at 13:14 Type of Consultation: Cardiology 24 HR Interval Summary Free Text/Dictation No acute events. Detailed Summary Additional Comments 14 point review of systems without changes. Exam/Review of Systems Vital Signs Vitals Vital Signs Date Time Temp Pulse Resp B/P Pulse Ox O2 Delivery O2 Flow Rate FiO2 11/16/16 21:06 2.0 11/16/16 20:18 102 11/16/16 19:50 98.1 16 183/84 98 11/15/16 20:00 Nasal Cannula Intake and Output 11/15/16 11/15/16 11/16/16 15:00 23:00 07:00 Intake Total 240 ml 1000 ml 500 ml Output Total 300 ml 600 ml 1000 ml Balance -60 ml 400 ml -500 ml Exam Gen: NAD, alert HEENT: NCAT Neck: No JVD Heart: RRR, no m/r/g/, S1S2, no S3S4, no c/c/e, sternotomy incision covered with gauze Lungs: Equal BS, no crackles/wheezes Abdomen: positive BS, s/nt/nd Ext: no c/c/e, warm Results Result Diagram: 11/16/16 0655 11/16/16 0655 Results 24 hrs Laboratory Tests Test 11/16/16 06:55 11/16/16 07:37 11/16/16 12:27 11/16/16 17:32 Anion Gap 11 Basophils # 0.1 Basophils % 0.4 Blood Urea Nitrogen 15 Calcium Level 8.4 Carbon Dioxide Level 29 Chloride Level 98 Creatinine 0.70 Eosinophils # 0.3 Eosinophils % 1.8 Glucose Level 115 Hematocrit 26.5 L Hemoglobin 9.1 L Lymphocytes # 2.3 Lymphocytes % 16.1 Magnesium Level 2.0 Mean Corpuscular Hemoglobin 30.0 Mean Corpuscular Hemoglobin Concent 34.3 Mean Corpuscular Volume 87.5 Mean Platelet Volume 10.2 Monocytes # 1.2 H Monocytes % 8.8 Neutrophils # 10.1 H Neutrophils % 72.2 Nucleated Red Blood Cells # 0.0 Nucleated Red Blood Cells % 0.0 Phosphorus Level 3.2 Platelet Count 347 Potassium Level 4.2 Red Blood Count 3.03 L Red Cell Distribution Width 13.5 Sodium Level 134 L White Blood Count 13.9 H Bedside Glucose 120 191 136 Test 11/16/16 20:38 Bedside Glucose 150 Medications Medications Current Medications Morphine Sulfate (morphine) 2 mg Q2H PRN IV FOR NON CARDIAC PAIN (4-10) Last administered on 11/12/16 21:03; Admin Dose 2 MG; Start 11/08/16 at 13:30 Atorvastatin Calcium (Lipitor) 80 mg HS PO Last administered on 11/16/16 20:38 ; Admin Dose 80 MG; Start 11/08/16 at 21:00 Nitroglycerin (Nitroglycerin (Sl Tab) 0.4 Mg) 1 tab [id number] PRN SL CHEST PAIN ; Start 11/08/16 at 14:00 Ondansetron HCl (Zofran (Ped)) 4 mg Q6 PRN PO nausea; Start 11/08/16 at 14:00 Hydromorphone HCl (Dilaudid) 0.2 mg Q15M PRN IV PAIN LEVEL 1-5; Start 11/11/16 at 12:00 Hydromorphone HCl (Dilaudid) 0.4 mg Q15M PRN IV PAIN LEVEL 6-10 Last administered on 11/11/16 17:15; Admin Dose 0.4 MG; Start 11/11/16 at 12:00 Oxycodone/ Acetaminophen (Percocet (5/ 325)) 1 tab Q3H PRN PO PAIN LEVEL 1-5 Last administered on 11/15/16 09:11; Admin Dose 1 TAB; Start 11/11/16 at 12:00 Oxycodone/ Acetaminophen (Percocet (5/ 325)) 2 tab Q3H PRN PO PAIN LEVEL 6-10; Start 11/11/16 at 12:00 Ondansetron HCl (Zofran Inj) 4 mg Q6H PRN IV NAUSEA AND/OR VOMITING; Start at 12:00 Aspirin (Aspirin) 325 mg DAILY PO Last administered on 11/16/16 09:15; Admin Dose 325 MG; Start 11/12/16 at 09:00 Acetaminophen (Tylenol Tab) 650 mg Q3H PRN PO ELEVATED TEMPERATURE; Start 11/11 at 12:00 Enoxaparin Sodium (Lovenox) 40 mg DAILY SC Last administered on 11/16/16 09:23 ; Admin Dose 40 MG; Start 11/12/16 at 09:00 Carvedilol (Coreg) 3.125 mg BID PO Last administered on 11/16/16 20:38; Admin Dose 3.125 MG; Start 11/12/16 at 09:00 Diagnostic Test (Pha) (Accucheck) 1 ea 02 XX Last administered on 11/14/16 02: 00; Admin Dose 1 EA; Start 11/13/16 at 02:00 Miscellaneous Information 1 ea NOTE XX ; Start 11/12/16 at 12:30 Glucose (Glutose) 15 gm Q15M PRN PO DECREASED GLUCOSE; Start 11/12/16 at 12:30 Glucose (Glutose) 22.5 gm Q15M PRN PO DECREASED GLUCOSE; Start 11/12/16 at 12: 30 Dextrose (D50w Syringe) 25 ml Q15M PRN IV DECREASED GLUCOSE; Start 11/12/16 at 12:30 Dextrose (D50w Syringe) 50 ml Q15M PRN IV DECREASED GLUCOSE; Start 11/12/16 at 12:30 Glucagon (Glucagen) 1 mg Q15M PRN IM DECREASED GLUCOSE; Start 11/12/16 at 12:30 Glucose (Glutose) 15 gm Q15M PRN BUCCAL DECREASED GLUCOSE; Start 11/12/16 at 12 :30 Docusate Sodium (Colace) 100 mg BID PO Last administered on 11/16/16 09:16; Admin Dose 100 MG; Start 11/13/16 at 21:00 Polyethylene Glycol (Miralax) 17 gm DAILY PRN PO CONSTIPATION Last administered on 11/13/16 15:29; Admin Dose 17 GM; Start 11/13/16 at 15:00 ANNIE CASANOVA MD Nov 16, 2016 21:11
[2016-11-17] VITALS (12 sets, daily range): BP systolic 115–137; BP diastolic 58–74; PULSE 83–100; RESP 16–19
[2016-11-17] MEDS: INSULIN ASPART [NOVOLOG] 3 ML PEN SC SCH ×4 (07:41→20:41)
[2016-11-17 07:57] LABS: ADD SCAN DIFF NO
[2016-11-17 08:01] LABS: BASOPHIL # 0.1 10^3/ul (0.0-0.1); BASOPHILS % 0.3 % (0.0-2.0); EOSINOPHILS # 0.3 10^3/ul (0.0-0.5); EOSINOPHILS % 1.7 % (0.0-7.0); HEMATOCRIT 27.4 % (42.0-52.0); HEMOGLOBIN 9.4 g/dl (14.0-18.0); LYMPHOCYTES # 2.7 10^3/ul (0.8-2.9); LYMPHOCYTES % 16.9 % (15.0-51.0); MEAN CORPUSCULAR HEMOGLOBIN 29.9 pg (29.0-33.0); MEAN CORPUSCULAR HGB CONC 34.3 g/dl (32.0-37.0); MEAN CORPUSCULAR VOLUME 87.3 fl (82.0-101.0); MEAN PLATELET VOLUME 9.8 fl (7.4-10.4); MONOCYTE # 1.4 10^3/ul (0.3-0.9); NEUTROPHIL # 11.1 10^3/ul (1.6-7.5); NEUTROPHILS % 70.6 % (39.0-77.0); NUCLEATED RED BLOOD CELLS% 0.1 /100WBC (0.0-0.0); PLATELET COUNT 417 10^3/UL (140-415); RED BLOOD COUNT 3.14 10^6/ul (4.70-6.10); RED CELL DISTRIBUTION WIDTH 13.6 % (11.5-14.5); WHITE BLOOD COUNT 15.7 10^3/ul (4.8-10.8)
--- NOTE | 2016-11-17 08:19 | PN ---
DATE: 11/17/2016 SUBJECTIVE: This morning, the patient is complaining about diarrhea, 2 loose stools. The patient i s also complaining of cough with phlegm. The patient is afebrile, saturating well on room air. No other acute events noted. OBJECTIVE: VITAL SIGNS: Blood pressure 124/72, respirations 19, pulse 98, temperature 98.1. HEENT: Head is normocephalic. Pupils are reactive to light. LUNGS: Show diminished breath sounds at base. No crackles or rhonchi. CHEST: Well healed sternotomy scar, no erythema, no discharge. HEART: Regular rate. ABDOMEN: Soft, nontender to palpation. EXTREMITIES: Negative for clubbing, cyanosis, no edema. DERMATOLOGIC: No rashes. MUSCULOSKELETAL: No joint effusions. NEUROLOGIC: No change in exam. MEDICATIONS: The patient's medications have been reviewed. LABORATORY DATA: Currently pending. Laboratory data from 11/16/2016, showed a white count 13.9, he moglobin 9.1, hematocrit 26.5, platelet count 347. The patient has a sodium of 134, potassium 4.2, BUN 15, creatinine 0.70. ASSESSMENT AND PLAN: 1. Coronary artery disease. The patient is status post 4-vessel CABG. The patient is currently st able. Continue medical management with aspirin 325, Lipitor, lisinopril, Coreg. 2. Diarrhea, etiology is unclear, possibly antibiotic associated. Will check stool for Clostridium difficile and monitor. 3. Bronchitis. The patient has productive cough. Will start the patient on azithromycin. Repeat chest x-ray shows no acute infiltrates, will monitor closely. 4. Diabetes. Continue metformin. Continue current insulin regimen. 5. Hypertension, controlled. Continue current blood pressure regimen. 6. Dyslipidemia. Continue statin therapy. 7. Anemia. Etiology secondary to operative blood loss. Will continue to monitor hemoglobin levels . There has been no gross hemoptysis or hematemesis. 8. Anxiety disorder. Continue Ativan. 9. Gastrointestinal and deep venous thrombosis prophylaxis. Continue Pepcid and Lovenox. Dictated By: VIPUL ALBARRAN/ALISA Conf#: [id number] DID#: [id number]
[2016-11-17] MEDS: DOCUSATE SODIUM 100 MG CAP PO SCH ×2 (09:00→20:41)
--- NOTE | 2016-11-17 09:17 | RADRPT ---
PROCEDURE: XR Chest. CLINICAL INDICATION: Chest tube removal, follow-up. TECHNIQUE: Chest x-ray, single view. COMPARISON: 11/16/2016. FINDINGS: The cardiac silhouette is magnified and unchanged in size and configuration. Median sternotomy wire s are in place. Improved expansion of the left lung is observed with mild residual atelectatic garza ges of the left lung base. The right lung is clear. There is no visible pneumothorax. There is no evidence of pneumomediastinum. Skeletal structures and upper abdomen are unremarkable. IMPRESSION: Improved expansion of the left lung with mild residual left basilar atelectatic changes. No visible pneumothorax. RPTAT: DD .Sabrina Mullen MD, MD Date Time Electronically viewed and signed by .Sabrina Mullen MD, on 11/17/2016 09:17 .T/
[2016-11-17] MEDS: ASPIRIN 325 MG TAB PO SCH (10:09)
[2016-11-17] MEDS: metFORMIN 500 MG TAB PO SCH ×2 (10:09→17:51)
[2016-11-17] MEDS: AZITHROMYCIN 250 MG TAB PO SCH (10:10)
[2016-11-17] MEDS: ENOXAPARIN 40 MG/0.4 ML SYG SC SCH (10:11)
--- NOTE | 2016-11-17 17:14 | CONS ---
Date/Time of Note Date/Time of Note DATE: 11/17/16 TIME: 17:13 Assessment/Plan Assessment/Plan Chief Complaint/Hosp Course Assessment: Multivessel CAD, s/p CABG X 4 (GARCIA to LAD, SVG to PDA, SVG to Ramus, SVG to Diag) 11/11/16; pre-op LVEF 45% HTN DM Dyslipidemia Recommendations 1. Post-op care per CT surgery 2. ASA 325 mg daily 3. Coreg 3.125 mg bid and Lipitor 80 mg qhs 4. Glycemic control 5. Discharge planning Problems: Consultation Date/Type/Reason Admit Date/Time Nov 08, 2016 at 13:14 Type of Consultation: Cardiology 24 HR Interval Summary Free Text/Dictation No acute events. Detailed Summary Additional Comments 14 point review of systems without changes. Exam/Review of Systems Vital Signs Vitals Vital Signs Date Time Temp Pulse Resp B/P Pulse Ox O2 Delivery O2 Flow Rate FiO2 11/17/16 16:33 100 11/17/16 15:48 98.1 19 128/74 98 11/17/16 15:27 2.0 11/15/16 20:00 Nasal Cannula Intake and Output 11/16/16 11/16/16 11/17/16 15:00 23:00 07:00 Intake Total 800 ml Output Total 1000 ml Balance -200 ml Exam Gen: NAD, alert HEENT: NCAT Neck: No JVD Heart: RRR, no m/r/g/, S1S2, no S3S4, no c/c/e, sternotomy incision covered with gauze Lungs: Equal BS, no crackles/wheezes Abdomen: positive BS, s/nt/nd Ext: no c/c/e, warm Results Result Diagram: 11/17/16 0710 11/16/16 0655 Results 24 hrs Laboratory Tests Test 11/16/16 17:32 11/16/16 20:38 11/17/16 07:10 11/17/16 07:34 Bedside Glucose 136 150 162 Basophils # 0.1 Basophils % 0.3 Eosinophils # 0.3 Eosinophils % 1.7 Hematocrit 27.4 L Hemoglobin 9.4 L Lymphocytes # 2.7 Lymphocytes % 16.9 Mean Corpuscular Hemoglobin 29.9 Mean Corpuscular Hemoglobin Concent 34.3 Mean Corpuscular Volume 87.3 Mean Platelet Volume 9.8 Monocytes # 1.4 H Monocytes % 9.0 Neutrophils # 11.1 H Neutrophils % 70.6 Nucleated Red Blood Cells # 0.0 Nucleated Red Blood Cells % 0.1 H Platelet Count 417 #H Red Blood Count 3.14 L Red Cell Distribution Width 13.6 White Blood Count 15.7 H Test 11/17/16 12:35 Bedside Glucose 206 Medications Medications Current Medications Morphine Sulfate (morphine) 2 mg Q2H PRN IV FOR NON CARDIAC PAIN (4-10) Last administered on 11/12/16 21:03; Admin Dose 2 MG; Start 11/08/16 at 13:30 Atorvastatin Calcium (Lipitor) 80 mg HS PO Last administered on 11/16/16 20:38 ; Admin Dose 80 MG; Start 11/08/16 at 21:00 Nitroglycerin (Nitroglycerin (Sl Tab) 0.4 Mg) 1 tab [id number] PRN SL CHEST PAIN ; Start 11/08/16 at 14:00 Ondansetron HCl (Zofran (Ped)) 4 mg Q6 PRN PO nausea; Start 11/08/16 at 14:00 Hydromorphone HCl (Dilaudid) 0.2 mg Q15M PRN IV PAIN LEVEL 1-5; Start 11/11/16 at 12:00 Hydromorphone HCl (Dilaudid) 0.4 mg Q15M PRN IV PAIN LEVEL 6-10 Last administered on 11/11/16 17:15; Admin Dose 0.4 MG; Start 11/11/16 at 12:00 Oxycodone/ Acetaminophen (Percocet (5/ 325)) 1 tab Q3H PRN PO PAIN LEVEL 1-5 Last administered on 11/15/16 09:11; Admin Dose 1 TAB; Start 11/11/16 at 12:00 Oxycodone/ Acetaminophen (Percocet (5/ 325)) 2 tab Q3H PRN PO PAIN LEVEL 6-10; Start 11/11/16 at 12:00 Ondansetron HCl (Zofran Inj) 4 mg Q6H PRN IV NAUSEA AND/OR VOMITING; Start at 12:00 Aspirin (Aspirin) 325 mg DAILY PO Last administered on 11/17/16 10:09; Admin Dose 325 MG; Start 11/12/16 at 09:00 Acetaminophen (Tylenol Tab) 650 mg Q3H PRN PO ELEVATED TEMPERATURE; Start 11/11 at 12:00 Enoxaparin Sodium (Lovenox) 40 mg DAILY SC Last administered on 11/17/16 10:11 ; Admin Dose 40 MG; Start 11/12/16 at 09:00 Carvedilol (Coreg) 3.125 mg BID PO Last administered on 11/17/16 10:10; Admin Dose 3.125 MG; Start 11/12/16 at 09:00 Diagnostic Test (Pha) (Accucheck) 1 ea 02 XX Last administered on 11/14/16 02: 00; Admin Dose 1 EA; Start 11/13/16 at 02:00 Miscellaneous Information 1 ea NOTE XX ; Start 11/12/16 at 12:30 Glucose (Glutose) 15 gm Q15M PRN PO DECREASED GLUCOSE; Start 11/12/16 at 12:30 Glucose (Glutose) 22.5 gm Q15M PRN PO DECREASED GLUCOSE; Start 11/12/16 at 12: 30 Dextrose (D50w Syringe) 25 ml Q15M PRN IV DECREASED GLUCOSE; Start 11/12/16 at 12:30 Dextrose (D50w Syringe) 50 ml Q15M PRN IV DECREASED GLUCOSE; Start 11/12/16 at 12:30 Glucagon (Glucagen) 1 mg Q15M PRN IM DECREASED GLUCOSE; Start 11/12/16 at 12:30 Glucose (Glutose) 15 gm Q15M PRN BUCCAL DECREASED GLUCOSE; Start 11/12/16 at 12 :30 Docusate Sodium (Colace) 100 mg BID PO Last administered on 11/16/16 09:16; Admin Dose 100 MG; Start 11/13/16 at 21:00 Polyethylene Glycol (Miralax) 17 gm DAILY PRN PO CONSTIPATION Last administered on 11/13/16 15:29; Admin Dose 17 GM; Start 11/13/16 at 15:00 Azithromycin (Zithromax) 250 mg DAILY PO Last administered on 11/17/16 10:10; Admin Dose 250 MG; Start 11/17/16 at 09:00 Pantoprazole (Protonix Tab) 40 mg DAILY@06 PO ; Start 11/18/16 at 06:00 ANNIE CASANOVA MD Nov 17, 2016 17:14
[2016-11-17] MEDS: ATORVASTATIN 80 MG TAB PO SCH (20:40)
[2016-11-17] MEDS: OXYCODONE/ACETAMINOPHEN (5/325) TAB PO PRN (20:45)
[2016-11-17] MEDS: ACCUCHECK XX SCH (21:35)
[2016-11-18] VITALS (11 sets, daily range): BP systolic 120–143; BP diastolic 58–73; PULSE 74–95; RESP 17–19
[2016-11-18] MEDS: PANTOPRAZOLE (EC) 40 MG TAB PO SCH (05:09)
[2016-11-18 06:05] LABS: ADD SCAN DIFF NO
[2016-11-18 06:25] LABS: BASOPHIL # 0.1 10^3/ul (0.0-0.1); BASOPHILS % 0.4 % (0.0-2.0); EOSINOPHILS # 0.4 10^3/ul (0.0-0.5); EOSINOPHILS % 2.8 % (0.0-7.0); HEMATOCRIT 26.6 % (42.0-52.0); LYMPHOCYTES # 2.6 10^3/ul (0.8-2.9); LYMPHOCYTES % 19.3 % (15.0-51.0); MEAN CORPUSCULAR HEMOGLOBIN 30.1 pg (29.0-33.0); MEAN CORPUSCULAR HGB CONC 33.8 g/dl (32.0-37.0); MEAN PLATELET VOLUME 9.5 fl (7.4-10.4); MONOCYTE # 1.1 10^3/ul (0.3-0.9); MONOCYTES % 8.1 % (0.0-11.0); NEUTROPHILS % 67.7 % (39.0-77.0); NUCLEATED RED BLOOD CELLS% 0.2 /100WBC (0.0-0.0); PLATELET COUNT 461 10^3/UL (140-415); RED BLOOD COUNT 2.99 10^6/ul (4.70-6.10); WHITE BLOOD COUNT 13.3 10^3/ul (4.8-10.8)
[2016-11-18 06:46] LABS: CREATININE 0.76 mg/dl (0.61-1.24)
[2016-11-18 06:47] LABS: CALCIUM 8.5 mg/dl (8.4-10.2); MAGNESIUM 2.1 mg/dl (1.7-2.5); PHOSPHORUS 3.2 mg/dl (2.5-4.9)
[2016-11-18] MEDS: INSULIN ASPART [NOVOLOG] 3 ML PEN SC SCH ×4 (07:55→20:48)
[2016-11-18] MEDS: AZITHROMYCIN 250 MG TAB PO SCH (08:53)
[2016-11-18] MEDS: metFORMIN 500 MG TAB PO SCH ×2 (08:53→17:39)
[2016-11-18] MEDS: ASPIRIN 325 MG TAB PO SCH (08:53)
[2016-11-18] MEDS: ENOXAPARIN 40 MG/0.4 ML SYG SC SCH (08:56)
[2016-11-18] MEDS: DOCUSATE SODIUM 100 MG CAP PO SCH ×2 (08:58→20:47)
[2016-11-18] MEDS ORDERED: Oxycodone/Acetamin (5/325) PO (09:10)
[2016-11-18] MEDS ORDERED: ASPI325T4 PO (09:10)
[2016-11-18] MEDS ORDERED: ATOR80TA75 PO (09:10)
[2016-11-18] MEDS ORDERED: AZIT250T6 PO (09:10)
[2016-11-18] MEDS ORDERED: PANT40TA4 PO (09:10)
[2016-11-18] MEDS ORDERED: METF500T PO (09:10)
[2016-11-18] MEDS ORDERED: CARV3.1260 PO (09:10)
--- NOTE | 2016-11-18 09:13 | DS ---
Date/Time of Note Date/Time of Note DATE: 11/18/16 TIME: 09:12 Discharge Summary Admission/Discharge Info Admit Date/Time Nov 08, 2016 at 13:14 Discharge Date/Time Final Diagnosis 1. Coronary artery disease. The patient is status post 4-vessel CABG. The patient is currently stable. Continue medical management with aspirin 325, Lipitor, lisinopril, Coreg. 2. Diarrhea, etiology is unclear, possibly antibiotic associated. Will check stool for Clostridium difficile and monitor. 3. Bronchitis. The patient has productive cough. Will start the patient on azithromycin. Repeat chest x-ray shows no acute infiltrates, will monitor closely. 4. Diabetes. Continue metformin. Continue current insulin regimen. 5. Hypertension, controlled. Continue current blood pressure regimen. 6. Dyslipidemia. Continue statin therapy. 7. Anemia. Etiology secondary to operative blood loss. Will continue to monitor hemoglobin levels. There has been no gross hemoptysis or hematemesis. 8. Anxiety disorder. Continue Ativan. 9. Gastrointestinal and deep venous thrombosis prophylaxis. Continue Pepcid and Lovenox. Patient Condition: Good Hospital Course Assessment: Multivessel CAD, s/p CABG X 4 (GARCIA to LAD, SVG to PDA, SVG to Ramus, SVG to Diag) 11/11/16; pre-op LVEF 45% HTN DM Dyslipidemia Recommendations 1. Post-op care per CT surgery 2. ASA 325 mg daily 3. Coreg 3.125 mg bid and Lipitor 80 mg qhs 4. Glycemic control 5. Discharge planning Home Meds Active Scripts Pantoprazole* (Pantoprazole*) 40 Mg Tablet., 40 MG PO DAILY@06 for 30 Days Prov:CHACHA STANFORD MD 11/18/16 [Oxycodone/Acetamin (5/325)] 1 TAB TAB No Conflict Check, 2 TAB PO Q3H Y for PAIN LEVEL 6-10 for 5 Days Prov:CHACHA STANFORD MD 11/18/16 Metformin Hcl (Glucophage) 500 Mg Tablet, 1000 MG PO BID WITH MEALS for 90 Days , TAB Prov:CHACHA STANFORD MD 11/18/16 Carvedilol* (Carvedilol*) 3.125 Mg Tablet, 3.125 MG PO BID for 90 Days, TAB Prov:CHACHA STANFORD MD 11/18/16 Azithromycin* (Azithromycin*) 250 Mg Tablet, 250 MG PO DAILY for 2 Days, #2 TAB Prov:CHACHA STANFORD MD 11/18/16 Atorvastatin* (Atorvastatin*) 80 Mg Tablet, 80 MG PO HS for 90 Days, TAB Prov:CHACHA STANOFRD MD 11/18/16 Aspirin (Aspirin Lite-Coat) 325 Mg Tablet, 325 MG PO DAILY for 90 Days, TAB Prov:CHACHA STANFORD MD 11/18/16 Reported Medications Carvedilol* (Carvedilol*) 12.5 Mg Tablet, 12.5 MG PO Q 12 hrs, #60 TAB 11/08/16 Discontinued Reported Medications Nitroglycerin* (Nitrostat*) 0.4 Mg Tab.subl, 0.4 MG SL Q5MIN Y for CHEST PAIN, BOTTLE 11/08/16 Nitroglycerin* (Nitroglycerin* Raymond) 400 Mcg/Raymond - 12 Gm Raymond, 1 SPRAY TL Q5M Y for CHEST PAIN, SPRAY 11/08/16 Ondansetron HCl (Zofran) 4 Mg/5 Ml Solution, 4 MG IV* 6 hrs 11/08/16 Ondansetron HCl (Ondansetron HCl) 2 Mg/1 Ml Vial, 4 MG IV, VIAL 11/08/16 Zolpidem Tartrate (Ambien Cr) 12.5 Mg Tab.mphase, 5 MG PO hs, TAB 11/08/16 Zolpidem Tartrate (Zolpidem Tartrate) 3.5 Mg Tab.subl, 3.5 MG SL 11/08/16 Simvastatin (Simvastatin) 20 Mg Tablet, 20 MG PO DAILY, #30 TAB 11/08/16 Pantoprazole* (Pantoprazole*) 40 Mg Tablet.dr, 40 MG PO AC BREAKFAST, TAB 11/08/16 Metformin* (Glucophage*) 1,000 Mg Tablet, 1000 MG PO BID, #60 TAB 11/08/16 Metformin HCl (Metformin HCl ER) 1,000 Mg [id number], 1000 MG PO, TAB 11/08/16 Metformin Hcl* (Metformin Hcl*) 1,000 Mg Tablet, 1000 MG PO WITH BREAKFAST Y for BID, #30 TAB 11/08/16 Lisinopril* (Lisinopril*) 10 Mg Tablet, 10 MG PO DAILY, #30 TAB 11/08/16 Aspirin* (Aspirin* Chew) 81 Mg Tab.chew, 81 MG PO DAILY, TAB.CHEW 11/08/16 Pending Labs Laboratory Tests Test 11/17/16 12:35 11/17/16 17:47 11/17/16 20:40 11/18/16 05:47 Bedside Glucose 206mg/dL (70-220) 129mg/dL (70-220) 162mg/dL (70-220) Anion Gap 12 (8-16) Basophils # 0.110^3/ul (0.0-0.1) Basophils % 0.4% (0.0-2.0) Blood Urea Nitrogen 15mg/dl (7-20) Calcium Level 8.5mg/dl (8.4-10.2) Carbon Dioxide Level 28mmol/L (21-31) Chloride Level 99mmol/L (97-110) Creatinine 0.76mg/dl (0.61-1.24) Eosinophils # 0.410^3/ul (0.0-0.5) Eosinophils % 2.8% (0.0-7.0) Glucose Level 105mg/dl (70-220) Hematocrit 26.6% (42.0-52.0) Hemoglobin 9.0g/dl (14.0-18.0) Lymphocytes # 2.610^3/ul (0.8-2.9) Lymphocytes % 19.3% (15.0-51.0) Magnesium Level 2.1mg/dl (1.7-2.5) Mean Corpuscular Hemoglobin 30.1pg (29.0-33.0) Mean Corpuscular Hemoglobin Concent 33.8g/dl (32.0-37.0) Mean Corpuscular Volume 89.0fl (82.0-101.0) Mean Platelet Volume 9.5fl (7.4-10.4) Monocytes # 1.110^3/ul (0.3-0.9) Monocytes % 8.1% (0.0-11.0) Neutrophils # 9.010^3/ul (1.6-7.5) Neutrophils % 67.7% (39.0-77.0) Nucleated Red Blood Cells # 0.010^3/ul (0.0-0.0) Nucleated Red Blood Cells % 0.2/100WBC (0.0-0.0) Phosphorus Level 3.2mg/dl (2.5-4.9) Platelet Count 24615^3/UL (140-415) Potassium Level 4.0mmol/L (3.5-5.1) Red Blood Count 2.9910^6/ul (4.70-6.10) Red Cell Distribution Width 14.0% (11.5-14.5) Sodium Level 135mmol/L (135-144) White Blood Count 13.310^3/ul (4.8-10.8) Test 11/18/16 08:12 Bedside Glucose 111mg/dL (70-220) CHACHA STANFORD MD Nov 18, 2016 09:12
--- NOTE | 2016-11-18 14:48 | RADRPT ---
PROCEDURE: XR Chest. CLINICAL INDICATION: Shortness of breath. TECHNIQUE: Single frontal view. COMPARISON: 11/17/2016. FINDINGS: There is left basilar atelectasis, unchanged. The lungs are otherwise clear. The heart is enlarged. There is calcification in the aorta consistent with atherosclerosis. There are sternal wires and mediastinal clips. There is no pleural effusion. There is no pneumothorax. IMPRESSION: 1. Left basilar atelectasis, unchanged. 2. Cardiomegaly and atherosclerosis. 3. Previous median sternotomy. RPTAT: QQ .Red Parr MD, MD Date Time Electronically viewed and signed by .Red Parr MD, MD on 11/18/2016 14:48 .R/
[2016-11-18] MEDS: ATORVASTATIN 80 MG TAB PO SCH (20:47)
[2016-11-19] VITALS (13 sets, daily range): BP systolic 112–143; BP diastolic 63–74; PULSE 85–99; RESP 16–20
[2016-11-19] MEDS: ACCUCHECK XX SCH (02:00)
[2016-11-19] MEDS: PANTOPRAZOLE (EC) 40 MG TAB PO SCH (06:14)
[2016-11-19] MEDS ORDERED: ONDANSETRON 4 MG TAB PO PRN (07:30)
[2016-11-19] MEDS: INSULIN ASPART [NOVOLOG] 3 ML PEN SC SCH ×4 (07:55→21:00)
[2016-11-19] MEDS: metFORMIN 500 MG TAB PO SCH ×2 (08:33→17:07)
[2016-11-19] MEDS: AZITHROMYCIN 250 MG TAB PO SCH (08:33)
[2016-11-19] MEDS: DOCUSATE SODIUM 100 MG CAP PO SCH ×2 (08:33→21:32)
[2016-11-19] MEDS: OXYCODONE/ACETAMINOPHEN (5/325) TAB PO PRN (08:34)
[2016-11-19] MEDS: ASPIRIN 325 MG TAB PO SCH (08:34)
[2016-11-19] MEDS: ENOXAPARIN 40 MG/0.4 ML SYG SC SCH (08:36)
[2016-11-19] MEDS: ATORVASTATIN 80 MG TAB PO SCH (21:32)
[2016-11-20] VITALS (11 sets, daily range): BP systolic 113–142; BP diastolic 67–71; PULSE 79–93; RESP 16–18
[2016-11-20] MEDS: ACCUCHECK XX SCH (02:00)
[2016-11-20] MEDS: PANTOPRAZOLE (EC) 40 MG TAB PO SCH (06:40)
[2016-11-20 06:41] LABS: ADD SCAN DIFF NO
[2016-11-20 06:48] LABS: BASOPHIL # 0.1 10^3/ul (0.0-0.1); BASOPHILS % 0.5 % (0.0-2.0); EOSINOPHILS # 0.3 10^3/ul (0.0-0.5); EOSINOPHILS % 2.5 % (0.0-7.0); HEMATOCRIT 28.2 % (42.0-52.0); HEMOGLOBIN 9.1 g/dl (14.0-18.0); LYMPHOCYTES # 2.5 10^3/ul (0.8-2.9); LYMPHOCYTES % 18.9 % (15.0-51.0); MEAN CORPUSCULAR HEMOGLOBIN 28.6 pg (29.0-33.0); MEAN CORPUSCULAR HGB CONC 32.3 g/dl (32.0-37.0); MEAN CORPUSCULAR VOLUME 88.7 fl (82.0-101.0); MEAN PLATELET VOLUME 9.1 fl (7.4-10.4); MONOCYTES % 7.7 % (0.0-11.0); NEUTROPHIL # 8.9 10^3/ul (1.6-7.5); NEUTROPHILS % 68.3 % (39.0-77.0); NUCLEATED RED BLOOD CELLS% 0.2 /100WBC (0.0-0.0); PLATELET COUNT 556 10^3/UL (140-415); RED BLOOD COUNT 3.18 10^6/ul (4.70-6.10); RED CELL DISTRIBUTION WIDTH 14.3 % (11.5-14.5); WHITE BLOOD COUNT 13.1 10^3/ul (4.8-10.8)
[2016-11-20 07:36] LABS: POTASSIUM 4.1 mmol/L (3.5-5.1)
[2016-11-20 07:38] LABS: CREATININE 0.74 mg/dl (0.61-1.24)
[2016-11-20 07:39] LABS: CALCIUM 8.6 mg/dl (8.4-10.2); PHOSPHORUS 3.2 mg/dl (2.5-4.9)
[2016-11-20] MEDS: INSULIN ASPART [NOVOLOG] 3 ML PEN SC SCH ×4 (07:55→20:17)
[2016-11-20] MEDS: AZITHROMYCIN 250 MG TAB PO SCH (08:17)
[2016-11-20] MEDS: DOCUSATE SODIUM 100 MG CAP PO SCH ×2 (08:17→20:10)
[2016-11-20] MEDS: ASPIRIN 325 MG TAB PO SCH (08:17)
[2016-11-20] MEDS: metFORMIN 500 MG TAB PO SCH ×2 (08:17→17:32)
[2016-11-20] MEDS: ENOXAPARIN 40 MG/0.4 ML SYG SC SCH (08:18)
--- NOTE | 2016-11-20 09:09 | PN ---
DATE: 11/20/2016 SUBJECTIVE: The patient is feeling better, still continues to have a cough. No other acute events noted. No hemoptysis, hematemesis, or hematochezia. OBJECTIVE: VITAL SIGNS: Blood pressure is 160/67, respirations 16, pulse 94, temperature 98.5. HEENT: Head is normocephalic. NECK: Supple. HEART: Regular rate. Chest shows well-healing sternotomy scar. LUNGS: Show diminished breath sounds at base. ABDOMEN: Soft, nontender to palpation, no rebound or guarding. EXTREMITIES: Negative for clubbing, cyanosis, no edema. DERMATOLOGIC: No rashes. MUSCULOSKELETAL: No joint effusions. NEUROLOGIC: No change in exam. MEDICATIONS: The patient's medications have been reviewed. LABORATORY DATA: Shows white count 13.1, hemoglobin 9.1, hematocrit 28.2, platelet count is 556. B MP within normal limits. Chest x-ray on November 18 shows cardiomegaly, basilar atelectasis, unchanged. ASSESSMENT AND PLAN: 1. Coronary artery disease, status post 4-vessel coronary artery bypass graft. The patient is curr ently stable. Continue current medical management. 2. Diarrhea, resolved. The patient's stool for Clostridium difficile was negative. 3. Bronchitis, improving. Continue azithromycin. Chest x-ray was reviewed. 4. Diabetes. Continue current insulin regimen. 5. Hypertension. Continue current blood pressure regimen. 6. Dyslipidemia. Continue statin therapy. 7. Anemia. Continue to monitor hemoglobin and hematocrit levels. 8. Thrombocytosis, likely reactive in nature. Continue to monitor. 9. Anxiety disorder. Continue Ativan. 10. Gastrointestinal and deep venous thrombosis prophylaxis. Continue Pepcid and Lovenox. Dictated By: VIPUL ALBARARN/ALISA Conf#: [id number] DID#: [id number]
[2016-11-20] MEDS: ATORVASTATIN 80 MG TAB PO SCH (20:09)
[2016-11-21 00:29] VITALS: BP 118/60; RESP 20
[2016-11-21 00:37] VITALS: PULSE 88
[2016-11-21] MEDS: ACCUCHECK XX SCH (02:45)
[2016-11-21 04:37] VITALS: BP 104/58; PULSE 80; RESP 20
[2016-11-21] MEDS: PANTOPRAZOLE (EC) 40 MG TAB PO SCH (06:30)
[2016-11-21 06:51] LABS: ADD SCAN DIFF NO
[2016-11-21 07:10] LABS: BASOPHILS % 0.2 % (0.0-2.0); EOSINOPHILS # 0.3 10^3/ul (0.0-0.5); EOSINOPHILS % 2.1 % (0.0-7.0); HEMOGLOBIN 9.1 g/dl (14.0-18.0); LYMPHOCYTES # 2.5 10^3/ul (0.8-2.9); LYMPHOCYTES % 20.7 % (15.0-51.0); MEAN CORPUSCULAR HEMOGLOBIN 29.1 pg (29.0-33.0); MEAN CORPUSCULAR HGB CONC 32.5 g/dl (32.0-37.0); MEAN CORPUSCULAR VOLUME 89.5 fl (82.0-101.0); MONOCYTE # 0.9 10^3/ul (0.3-0.9); MONOCYTES % 7.3 % (0.0-11.0); NEUTROPHIL # 8.3 10^3/ul (1.6-7.5); NEUTROPHILS % 68.4 % (39.0-77.0); PLATELET COUNT 584 10^3/UL (140-415); RED BLOOD COUNT 3.13 10^6/ul (4.70-6.10); RED CELL DISTRIBUTION WIDTH 14.7 % (11.5-14.5); WHITE BLOOD COUNT 12.1 10^3/ul (4.8-10.8)
[2016-11-21 07:38] VITALS: BP 123/72; RESP 18
[2016-11-21] MEDS: INSULIN ASPART [NOVOLOG] 3 ML PEN SC SCH (07:47)
[2016-11-21 08:38] VITALS: PULSE 84
[2016-11-21] MEDS: DOCUSATE SODIUM 100 MG CAP PO SCH (08:41)
[2016-11-21] MEDS: metFORMIN 500 MG TAB PO SCH (08:41)
[2016-11-21] MEDS: ASPIRIN 325 MG TAB PO SCH (08:41)
[2016-11-21] MEDS: AZITHROMYCIN 250 MG TAB PO SCH (08:41)
--- NOTE | 2016-11-21 08:42 | DS ---
DATE OF ADMISSION: 11/08/2016 DATE OF DISCHARGE: HOSPITAL COURSE: This is a 76-year-old male with a past medical history of hypertension, ej gant, history of coronary artery disease, who was transferred to [facility] fro m an outside facility due to chest pain. The patient upon arrival to [facility] h ad a cardiac catheterization which showed 3-vessel CABG. The patient was subsequently seen by a CT surgeon, Dr. Alfred, and underwent 4-vessel CABG. Following CABG the patient was stable. Postoperat ively the patient had bronchitis, which resolved after receiving a 5-day course of antibiotic therap y. The patient postoperatively also had a mild leukocytosis which has subsequently been improving. The patient also, postoperative, hypertension and diabetes have been controlled. The patient did h ave one episode of diarrhea which subsequently resolved. The patient has been working well with [facility]; however, he did suffer a premorbid decline in this state due to the surgery and will be transferred to an assisted living facility where he will continue physical therapy. At the time of transfer the patient is stable, in no acute distress. FINAL DIAGNOSES: 1. Coronary artery disease, status post 4-vessel coronary artery bypass graft. 2. Diarrhea, resolved. 3. Bronchitis, status post antibiotics. 4. Diabetes. The patient is on metformin. 5. Hypertension, controlled. 6. Dyslipidemia. 7. Statin therapy. 8. Anemia, improved. 9. Leukocytosis, reactive, resolving. CONDITION ON DISCHARGE: At time of discharge the patient is stable, in no acute distress. FINAL MEDICATIONS: 1. Patient will be discharged on Aspirin 325 p.o. daily. 2. Lipitor 80 mg at bedtime. 3. Coreg 3.125 p.o. b.i.d. 4. Colace 100 mg p.o. daily. 5. Metformin 1000 mg b.i.d. 6. [place] p.r.n. for pain. 7. Insulin sliding scale. Please note, the patient will follow up with his primary care physician and will follow with Dr. Tiago santana in 1 week's time, and will follow up with Dr. Alfred in 1 week's time. Please note, I spent over 40 minutes time preparing the patient's discharge. At the time of discharge patient is stable, in no acute distress. Dictated By: VIPUL ALBARRAN/ALISA Conf#: [id number] DID#: [id number]
[2016-11-21] MEDS: ENOXAPARIN 40 MG/0.4 ML SYG SC SCH (08:45)
[2016-11-21 12:17] VITALS: PULSE 90
== END 2016-11-21 12:10 | DRG 234 ==
LOC: CCL 08:38 → TEL 13:14 → CCL 15:36 → ICU 11-11 11:14 → TEL 11-14 15:00
PROVIDERS: ADMIT Internal Medicine; ATTEND Internal Medicine
PROC: B211YZZ Fluoroscopy of Multiple Coronary Arteries using Other Contrast (ICD-10-PCS; 2016-11-08)
PROC: 4A023N7 Measurement of Cardiac Sampling and Pressure, Left Heart, Percutaneous Approach (ICD-10-PCS; 2016-11-08 10:30)
PROC: 02100Z9 Bypass Coronary Artery, One Artery from Left Internal Mammary, Open Approach (ICD-10-PCS; 2016-11-11)
PROC: 06BQ4ZZ Excision of Left Saphenous Vein, Percutaneous Endoscopic Approach (ICD-10-PCS; 2016-11-11)
PROC: 5A1221Z Performance of Cardiac Output, Continuous (ICD-10-PCS; 2016-11-11)
PROC: 3E080GC Introduction of Other Therapeutic Substance into Heart, Open Approach (ICD-10-PCS; 2016-11-11)
PROC: 021209W Bypass Coronary Artery, Three Arteries from Aorta with Autologous Venous Tissue, Open Approach (ICD-10-PCS; principal; 2016-11-11 07:30)
DX: I25.110 Atherosclerotic heart disease of native coronary artery with unstable angina pectoris (principal); R65.10 Systemic inflammatory response syndrome (SIRS) of non-infectious origin without acute organ dysfunction; R00.1 Bradycardia, unspecified; D62 Acute posthemorrhagic anemia; E11.9 Type 2 diabetes mellitus without complications; E83.39 Other disorders of phosphorus metabolism; J20.9 Acute bronchitis, unspecified; I10 Essential (primary) hypertension; E78.5 Hyperlipidemia, unspecified; J45.909 Unspecified asthma, uncomplicated; F41.9 Anxiety disorder, unspecified; Z79.4 Long term (current) use of insulin; Z79.82 Long term (current) use of aspirin; Z87.891 Personal history of nicotine dependence; Z98.61 Coronary angioplasty status; T44.7X5A Adverse effect of beta-adrenoreceptor antagonists, initial encounter; Y92.230 Patient room in hospital as the place of occurrence of the external cause; R19.7 Diarrhea, unspecified
CPT/HCPCS: 36592; 36600; 71010; 80048; 82803; 82962; 83735; 84100; 85014; 85025; 85610; 85730; 86850; 86900; 86901; 86920; 87075; 87081; 93005; 93312; 93325; 93458; 93880; 94002; 94770; 97110; 97116; 97162; 97530; C1769; C1887; J0171; J0330; J0690; J1170; J1265; J1644; J1650; J1815; J2001; J2150; J2250; J2260; J2270; J2370; J2440; J2720; J3010; J3370; J3475; J3480; J7030; J7070; P9045; P9047